=== PATIENT | male | born 1965 | race Caucasian/White ===

== ENCOUNTER 2017-03-06 10:47 | Inpatient (IN) | payer BC ==
[2017-03-06 10:54] LABS: Glucose,Whole Blood 184 mg/dL (75-99)
[2017-03-06] MEDS ORDERED: EPINEPHrine 10 ML SYRINGE (0.1 MG/ML) ONE (10:55)
[2017-03-06] MEDS ORDERED: SODIUM BICARB 8.4% 50 ML SYR (1 MEQ/ML) ONE (10:55)
[2017-03-06] MEDS ORDERED: DEXTROSE 50%-WATER 50 ML SYRINGE IVP ONE (10:55)
[2017-03-06] MEDS ORDERED: NITROGLYCERIN SL TABS 0.4 MG TAB SUBLINGUAL PRN (11:12)
[2017-03-06 11:27] LABS: Appearance,Urine Clear (Clear); Bilirubin,Urine Negative (Negative); Glucose,Urine (UA) Negative (Negative); Ketones,Urine Negative (Negative); Leukocyte Esterase,Urine Negative (Negative); Nitrite,Urine Negative (Negative); PH, Urine 5.5 (5.0-8.0); Protein,Urine Negative (Negative); Specific Gravity,Urine 1.002 (1.001-1.035); UA Billing (MACRO vs. MICRO) CHEM; Urobilinogen,Urine <2.0 mg/dL (<2.0)
[2017-03-06] MEDS ORDERED: NOREPINEPHRIN 4 MG-0.9% NS PMX 4 MG/250 ML ML IV ONE (11:28)
--- NOTE | 2017-03-06 11:28 | ED ---
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 EMS was called. EMS arrived about 10:26 AM. He was found be pulseless at neck. ACLS protocol was started including an oral airway with bag valve mask and CPR. Patient arrives. 10:47 AM. He remained pulseless. A cells protocol was continued. After a period of time he did regain pulses. Patient did require oral tracheal intubation. MD Complaint: stopped breathing, collapsed during activity - Related Data Home Medications Medication Instructions Recorded Confirmed Albuterol Inhaler [Ventolin Hfa 1 - 2 puff INHALATION RT-Q6H PRN 03/06/17 Inhaler] Albuterol Nebulized [Ventolin 2.5 mg INHALATION RT-Q4H PRN 03/06/17 03/06/17 Nebulized] Budesonide [Pulmicort] 0.5 mg INHALATION RT-BID 03/06/17 03/06/17 Carvedilol [Coreg] 6.25 mg PO BID 03/06/17 03/06/17 Furosemide [Lasix] 40 mg PO DAILY 03/06/17 03/06/17 Rivaroxaban [Xarelto] 20 mg PO W/SUPPER 03/06/17 03/06/17 Allergies Allergy/AdvReac Type Severity Reaction Status Date / Time walnut Allergy Unknown Verified 03/06/17 11:37 ORANGE JUICE PULP Allergy Unknown Uncoded 03/06/17 11:37 OREO COOKIES Allergy Unknown Uncoded 03/06/17 11:37 Review of Systems ROS Statement: Those systems with pertinent positive or pertinent negative responses have been documented in the HPI. ROS Other: All systems not noted in ROS Statement are negative. Limitations: ROS unobtainable due to patients medical condition Past Medical History Past Medical History: Asthma, COPD, Pulmonary Embolus (PE), Sleep Apnea/CPAP/ BIPAP Additional Past Medical History / Comment(s): Cor pulmonale History of Any Multi-Drug Resistant Organisms: Unobtainable Past Surgical History: Unable to Obtain Past Psychological History: Unable to Obtain Smoking Status: Current every day smoker Past Alcohol Use History: Unable to Obtain Past Drug Use History: Unable to Obtain General Exam - General Exam Comments Initial Comments: This is a well-developed well-nourished obese male CPR was in progress upon arrival. Limitations: altered mental status, physical limitation General appearance: other (Unresponsive) Head exam: Present: atraumatic, normocephalic Eye exam: Present: other (Pupils are fixed and dilated) ENT exam: Present: other (Oral airway in place) Neck exam: Present: normal inspection. Absent: tenderness, meningismus, lymphadenopathy Respiratory exam: Present: decreased breath sounds (With [id number]) Cardiovascular Exam: Present: other (Pulseless) GI/Abdominal exam: Present: other (Obese abdomen) Rectal exam: Present: deferred exam: Present: normal inspection Extremities exam: Present: other (Stasis changes noted to the lower extremities) . Absent: normal capillary refill Neurological exam: Present: other (Unresponsive) Psychiatric exam: Present: other (Unable to evaluate) Skin exam: Present: mottled Course Vital Signs 03/06/17 03/06/17 03/06/17 11:16 11:20 11:24 Temperature 97.2 F L Pulse Rate Pulse Rate [ 98 93 93 Custodial Foreman ] Respiratory 14 14 14 Rate Blood Pressure Blood Pressure 113/43 116/51 88/49 [Right Arm] O2 Sat by Pulse 100 100 100 Oximetry 03/06/17 03/06/17 03/06/17 11:34 11:40 11:45 Temperature Pulse Rate 96 96 Pulse Rate [ 95 Custodial Foreman ] Respiratory 14 14 14 Rate Blood Pressure 112/70 133/83 Blood Pressure 92/55 [Right Arm] O2 Sat by Pulse 99 99 99 Oximetry 03/06/17 03/06/17 11:50 11:55 Temperature Pulse Rate Pulse Rate [ 94 90 Custodial Foreman ] Respiratory 14 14 Rate Blood Pressure Blood Pressure 144/88 157/94 [Right Arm] O2 Sat by Pulse 99 99 Oximetry - Reevaluation(s) Reevaluation #1: 03/06/17 11:39 Review the x-ray shows the endotracheal tube to be just above the kanchan and will be withdrawn about 1 cm. I did have a long discussion with the patient's regarding the findings. Reevaluation #2: 03/06/17 12:09 Reevaluation patient reveals minimal change he still has a pulse and blood pressure he is still unresponsive. Lactic acid was noted to be elevated this is likely secondary to the events of the morning. IV fluids are progress. I did discuss the case with Dr. Ruiz as well as previously with Dr. Lester and with Deedee Pérez's associate. The patient will be admitted ICU. Procedures - Intubation Time Out Performed: No (Present with the patient at all time) Laryngoscope: fiber optic video scope Size: 4 Assist Device Used: Bougie ET Tube Size: 8 ET Tube Uncuffed: No (Cuff the tube) Tube Secured Depth (cm): 26 Tube Secured Location: lips (Difficult intubation due to the anterior positioning) Tube Placement Confirmation: visualized tube passing through cords, confirmation by capnometry Medical Decision Making - Lab Data Result diagrams: 03/06/17 11:16 03/06/17 11:16 Lab Results 03/06/17 03/06/17 03/06/17 Range/Units 10:53 11:16 11:16 WBC 8.6 (3.8-10.6) k/uL RBC 5.01 (4.30-5.90) m/uL Hgb 15.5 (13.0-17.5) gm/dL Hct 48.7 (39.0-53.0) % MCV 97.1 (80.0-100.0) fL MCH 30.9 (25.0-35.0) pg MCHC 31.8 (31.0-37.0) g/dL RDW 14.0 (11.5-15.5) % Plt Count 170 (150-450) k/uL Neutrophils % 52 % Lymphocytes % 40 % Monocytes % 5 % Eosinophils % 1 % Basophils % 1 % Neutrophils # 4.4 (1.3-7.7) k/uL Lymphocytes # 3.4 (1.0-4.8) k/uL Monocytes # 0.4 (0-1.0) k/uL Eosinophils # 0.1 (0-0.7) k/uL Basophils # 0.1 (0-0.2) k/uL Hypochromasia Moderate PT (9.0-12.0) sec INR (<1.2) APTT (22.0-30.0) sec Sodium 140 (137-145) mmol/L Potassium 5.6 H (3.5-5.1) mmol/L Chloride 105 (98-107) mmol/L Carbon Dioxide 14 L (22-30) mmol/L Anion Gap 21 mmol/L BUN 11 (9-20) mg/dL Creatinine 1.40 H (0.66-1.25) mg/dL Est GFR (MDRD) Af Amer >60 (>60 ml/min/1.73 sqM) Est GFR (MDRD) Non-Af 53 (>60 ml/min/1.73 sqM) Glucose 292 H (74-99) mg/dL POC Glucose (mg/dL) 184 H (75-99) mg/dL POC Glu Coverage Specialist Rn ID [place] askew Plasma Lactic Acid Scooter (0.7-2.0) mmol/L Calcium 8.6 (8.4-10.2) mg/dL Magnesium 2.4 H (1.6-2.3) mg/dL Total Bilirubin 0.6 (0.2-1.3) mg/dL AST 79 H (17-59) U/L ALT 78 H (21-72) U/L Alkaline Phosphatase 60 (38-126) U/L Total Creatine Kinase (55-170) U/L CK-MB (CK-2) (0.0-2.4) ng/mL CK-MB (CK-2) Rel Index Troponin I (0.000-0.034) ng/mL Total Protein 5.8 L (6.3-8.2) g/dL Albumin 3.5 (3.5-5.0) g/dL Urine Color Urine Appearance (Clear) Urine pH (5.0-8.0) Ur Specific [place] (1.001-1.035) Urine Protein (Negative) Urine Glucose (UA) (Negative) Urine Ketones (Negative) Urine Blood (Negative) Urine Nitrite (Negative) Urine Bilirubin (Negative) Urine Urobilinogen (<2.0) mg/dL Ur Leukocyte Esterase (Negative) 03/06/17 03/06/17 03/06/17 Range/Units 11:16 11:16 11:16 WBC (3.8-10.6) k/uL RBC (4.30-5.90) m/uL Hgb (13.0-17.5) gm/dL Hct (39.0-53.0) % MCV (80.0-100.0) fL MCH (25.0-35.0) pg MCHC (31.0-37.0) g/dL RDW (11.5-15.5) % Plt Count (150-450) k/uL Neutrophils % % Lymphocytes % % Monocytes % % Eosinophils % % Basophils % % Neutrophils # (1.3-7.7) k/uL Lymphocytes # (1.0-4.8) k/uL Monocytes # (0-1.0) k/uL Eosinophils # (0-0.7) k/uL Basophils # (0-0.2) k/uL Hypochromasia PT 10.7 (9.0-12.0) sec INR 1.1 (<1.2) APTT 27.8 (22.0-30.0) sec Sodium (137-145) mmol/L Potassium (3.5-5.1) mmol/L Chloride (98-107) mmol/L Carbon Dioxide (22-30) mmol/L Anion Gap mmol/L BUN (9-20) mg/dL Creatinine (0.66-1.25) mg/dL Est GFR (MDRD) Af Amer (>60 ml/min/1.73 sqM) Est GFR (MDRD) Non-Af (>60 ml/min/1.73 sqM) Glucose (74-99) mg/dL POC Glucose (mg/dL) (75-99) mg/dL POC Glu Coverage Specialist Rn ID Plasma Lactic Acid Scooter 12.7 H* (0.7-2.0) mmol/L Calcium (8.4-10.2) mg/dL Magnesium (1.6-2.3) mg/dL Total Bilirubin (0.2-1.3) mg/dL AST (17-59) U/L ALT (21-72) U/L Alkaline Phosphatase (38-126) U/L Total Creatine Kinase 116 (55-170) U/L CK-MB (CK-2) 0.8 (0.0-2.4) ng/mL CK-MB (CK-2) Rel Index 0.7 Troponin I <0.012 (0.000-0.034) ng/mL Total Protein (6.3-8.2) g/dL Albumin (3.5-5.0) g/dL Urine Color Urine Appearance (Clear) Urine pH (5.0-8.0) Ur Specific [place] (1.001-1.035) Urine Protein (Negative) Urine Glucose (UA) (Negative) Urine Ketones (Negative) Urine Blood (Negative) Urine Nitrite (Negative) Urine Bilirubin (Negative) Urine Urobilinogen (<2.0) mg/dL Ur Leukocyte Esterase (Negative) 03/06/17 Range/Units 11:18 WBC (3.8-10.6) k/uL RBC (4.30-5.90) m/uL Hgb (13.0-17.5) gm/dL Hct (39.0-53.0) % MCV (80.0-100.0) fL MCH (25.0-35.0) pg MCHC (31.0-37.0) g/dL RDW (11.5-15.5) % Plt Count (150-450) k/uL Neutrophils % % Lymphocytes % % Monocytes % % Eosinophils % % Basophils % % Neutrophils # (1.3-7.7) k/uL Lymphocytes # (1.0-4.8) k/uL Monocytes # (0-1.0) k/uL Eosinophils # (0-0.7) k/uL Basophils # (0-0.2) k/uL Hypochromasia PT (9.0-12.0) sec INR (<1.2) APTT (22.0-30.0) sec Sodium (137-145) mmol/L Potassium (3.5-5.1) mmol/L Chloride (98-107) mmol/L Carbon Dioxide (22-30) mmol/L Anion Gap mmol/L BUN (9-20) mg/dL Creatinine (0.66-1.25) mg/dL Est GFR (MDRD) Af Amer (>60 ml/min/1.73 sqM) Est GFR (MDRD) Non-Af (>60 ml/min/1.73 sqM) Glucose (74-99) mg/dL POC Glucose (mg/dL) (75-99) mg/dL POC Glu Coverage Specialist Rn ID Plasma Lactic Acid Scooter (0.7-2.0) mmol/L Calcium (8.4-10.2) mg/dL Magnesium (1.6-2.3) mg/dL Total Bilirubin (0.2-1.3) mg/dL AST (17-59) U/L ALT (21-72) U/L Alkaline Phosphatase (38-126) U/L Total Creatine Kinase (55-170) U/L CK-MB (CK-2) (0.0-2.4) ng/mL CK-MB (CK-2) Rel Index Troponin I (0.000-0.034) ng/mL Total Protein (6.3-8.2) g/dL Albumin (3.5-5.0) g/dL Urine Color Light Yellow Urine Appearance Clear (Clear) Urine pH 5.5 (5.0-8.0) Ur Specific [place] 1.002 (1.001-1.035) Urine Protein Negative (Negative) Urine Glucose (UA) Negative (Negative) Urine Ketones Negative (Negative) Urine Blood Negative (Negative) Urine Nitrite Negative (Negative) Urine Bilirubin Negative (Negative) Urine Urobilinogen <2.0 (<2.0) mg/dL Ur Leukocyte Esterase Negative (Negative) - EKG Data -: EKG Interpreted by [facility] EKG shows normal: sinus rhythm (Sinus tachycardia with a rate of 108 ME interval 192 QRS 154 daily since QTC of 366/490 right bundle-branch block left posterior fascicular block patterns) Critical Care Time Critical Care Time: Yes Critical Care Time: 57 minutes of critical care time which does not include the intubation which does include the CPR ACLS protocol as well as multiple discussions with the patient is family multiple discussions with physicians and reevaluation of the patient. Documentation above and admission orders. Disposition Clinical Impression: Acute respiratory failure, Cardiac arrest, Lactic acidosis, Encephalopathy acute, PEA (Pulseless electrical activity) Disposition: ADMITTED IP TO THIS [facility] Condition: Critical Referrals: Nonstaff,Physician [REFERRING] - 1-2 days
[2017-03-06 11:30] LABS: Basophils # (A) 0.1 k/uL (0-0.2); Basophils % (A) 1 %; CH 29.4; CHCM 30.4; Eosinophils # (A) 0.1 k/uL (0-0.7); Eosinophils % (A) 1 %; HCT 48.7 % (39.0-53.0); HDW 2.71; HGB 15.5 gm/dL (13.0-17.5); Hypochromasia Moderate; Luc # (Auto) 0.14; Luc % (Auto) 2; Lymphocytes # (A) 3.4 k/uL (1.0-4.8); Lymphocytes % (A) 40 %; MCH 30.9 pg (25.0-35.0); MCHC 31.8 g/dL (31.0-37.0); MCV 97.1 fL (80.0-100.0); Mean Platelet Volume 8.2; Monocytes # (A) 0.4 k/uL (0-1.0); Monocytes % (A) 5 %; Neutrophils # (A) 4.4 k/uL (1.3-7.7); Neutrophils % (A) 52 %; RBC 5.01 m/uL (4.30-5.90); WBC 8.6 k/uL (3.8-10.6); WBC (Perox) 8.34
[2017-03-06] MEDS ORDERED: SODIUM CHLORIDE 0.9% 1,000 ML IV ONE ×2 (11:30→11:32)
[2017-03-06 11:41] LABS: INR 1.1 (<1.2); Partial Thromboplastin Time 27.8 sec (22.0-30.0); Prothrombin Time 10.7 sec (9.0-12.0)
[2017-03-06 11:46] LABS: ALT 78 U/L (21-72); AST 79 U/L (17-59); Alkaline Phosphatase 60 U/L (38-126); Anion Gap 21 mmol/L; Blood Urea Nitrogen 11 mg/dL (9-20); Calcium 8.6 mg/dL (8.4-10.2); Carbon Dioxide 14 mmol/L (22-30); Chloride 105 mmol/L (98-107); Glucose 292 mg/dL (74-99); Magnesium 2.4 mg/dL (1.6-2.3); Non-African American GFR(MDRD) 53 (>60 ml/min/1.73 sqM); Potassium 5.6 mmol/L (3.5-5.1); Sodium 140 mmol/L (137-145); Total Bilirubin 0.6 mg/dL (0.2-1.3); Total Protein 5.8 g/dL (6.3-8.2)
--- NOTE | 2017-03-06 11:49 | XR ---
EXAMINATION TYPE: XR chest 1V portable DATE OF EXAM: 03/06/2017 Comparison: None Clinical History: 51-year-old male with chest pain Findings: Patient is supine and rotated to the left. This alters a normal cardiac and mediastinal contours. ET tube tip is partially obscured by the NG tube and the kanchan is not well delineated. The tip is ap proximated at 1.5 cm from the kanchan. ET tube could be pulled back by 2 cm and reassessed. NG tube courses below the diaphragm. Heart is mildly enlarged with diffuse interstitial prominence. External artifacts are present. There may be some patchy opacity at the cardiac apex. Impression: 1. Normal cardiomediastinal contours altered by patient rotation. 2. ET tube tip and kanchan not optimally visualized. Estimate the tip to be 1.5 cm from the kanchan. Co nsider 2 cm of withdrawal and reassessment at follow-up. 3. Possible mild CHF. 4. Some atelectasis or infiltrate at the inferior lingula.
[2017-03-06 11:50] LABS: Creatine Kinase 116 U/L (55-170)
[2017-03-06 12:03] LABS: Creatine Kinase MB 0.8 ng/mL (0.0-2.4); Troponin I <0.012 ng/mL (0.000-0.034)
[2017-03-06] MEDS ORDERED: SODIUM CHLORIDE 0.9% 1,000 ML IV STA (12:07)
[2017-03-06] MEDS ORDERED: NALOXONE 0.4 MG/ML 1 ML VIAL IV PRN (12:13)
[2017-03-06] MEDS ORDERED: RX INFO: IV CONTRAST WAS GIVEN 1 EACH MISC MISCELLANE PRN (12:19)
[2017-03-06] MEDS: LORazepam 2 MG/ML SYRINGE IV STA ×2 (12:54→14:08)
[2017-03-06] MEDS: PROPOFOL 1,000 MG/100 ML VIAL IV SCH ×3 (13:30→23:25)
--- NOTE | 2017-03-06 13:30 | CT ---
EXAMINATION TYPE: CT angio chest DATE OF EXAM: 03/06/2017 COMPARISON: NONE HISTORY: Cardiac arrest, patient intubated at time of scan CT DLP: 1137.7 mGycm CONTRAST: CT chest with contrast and 3D reconstruction with MIP imaging is performed with IV Contrast, patient injected with 80 mL of Visipaque 320. Contrast-enhanced CT of the chest was performed through the course of the pulmonary arteries with edelmira g and mediastinal window settings submitted. 3D reconstruction with MIP imaging was also performed. PULMONARY ARTERIES: The pulmonary arteries and their major tributaries are patent. I do not see xiomara dence for sizable filling defect to suggest pulmonary embolic process. LUNGS: Left lower lobe atelectasis or infiltrate noted. No evidence for atelectasis. No pulmonary n odule or mass is detected. No pleural effusion. Endotracheal and NG tubes are in place. MEDIASTINUM: Thoracic aorta is of normal caliber . The heart is not enlarged. No evidence for media stinal mass. No mediastinal lymph nodes greater than 1cm. HILAR STRUCTURES: No evidence for mass. No hilar lymph nodes greater than 1 cm. UPPER ABDOMEN: No significant abnormality is seen. IMPRESSION: 1. No evidence for Pulmonary embolism at this time. 2. Left lower lobe atelectasis or infiltrate noted.
[2017-03-06] MEDS ORDERED: methylPREDNISolone SOD SUCCI 125 MG/2 ML VIAL IV STA (13:42)
[2017-03-06 14:31] LABS: ABG HCO3 20 mmol/L (21-25); ABG PCO2 76 mmHg (35-45); ABG PH 7.05 (7.35-7.45); ABG PO2 >400 mmHg (83-108); ABG TCO2 22 mmol/L (19-24)
[2017-03-06 14:32] LABS: ABG Oxygen Saturation 99.9 % (94-97)
--- NOTE | 2017-03-06 16:23 | P.CON ---
Consult Note - . Consult date: 03/06/17 Assessment/Plan:: *Live* [facility]ika Fontana [address], [place] [address] CPR Patient Name: Claude Veloz Date of : 65 Patient Status: Inpatient Attending Provider: Gustavo Ruiz Date: 03/06/17 4:00pm CRITICAL CARE CONSULT CPR HPI - General Chief Complaint: S/P Cardiac Arrest/CPR Stated Complaint: Cardiac Arrest Time Seen by Provider: 03/06/17 2:30 Source: RN/MD, EMS, RN notes reviewed, old records reviewed, PRESENT BEDSIDE - History of Present Illness Initial Comments: This is a 51-year-old male with a history of COPD cor pulmonale pulmonary embolism severe morbid obesity, obstructive sleep apnea who 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 EMS was called. He was found be pulseless at neck. ACLS protocol was started including an oral airway with bag valve mask and CPR. He remained pulseless, in emergency department, for details please refer to the code sheet however it appears that 20 minutes of ACLS protocol was done in the field and another 35 to 40 minutes in the emergency department. ACLS protocol was continued. After a period of time he did regain pulses. Patient did require oral tracheal intubation in the emergency department. Patient has a history of pneumonia pulmonary hypertension was diagnosed about a year ago at that time he was also on respirator at [facility] exact details are not available - Related Data Home Medications Medication Instructions Recorded Confirmed Albuterol Inhaler [Ventolin Hfa 1 - 2 puff INHALATION RT-Q6H PRN 03/06/17 Inhaler] Albuterol Nebulized [Ventolin 2.5 mg INHALATION RT-Q4H PRN 03/06/17 03/06/17 Nebulized] Budesonide [Pulmicort] 0.5 mg INHALATION RT-BID 03/06/17 03/06/17 Carvedilol [Coreg] 6.25 mg PO BID 03/06/17 03/06/17 Furosemide [Lasix] 40 mg PO DAILY 03/06/17 03/06/17 Rivaroxaban [Xarelto] 20 mg PO W/SUPPER 03/06/17 03/06/17 Allergies Allergy/AdvReac Type Severity Reaction Status Date / Time walnut Allergy Unknown Verified 03/06/17 11:37 ORANGE JUICE PULP Allergy Unknown Uncoded 03/06/17 11:37 OREO COOKIES Allergy Unknown Uncoded 03/06/17 11:37 Review of Systems ROS Statement: Those systems with pertinent positive or pertinent negative responses have been documented in the HPI. ROS Other: All systems not noted in ROS Statement are negative. Limitations: ROS unobtainable due to patients medical condition Past Medical History Past Medical History: Asthma, COPD, Pulmonary Embolus (PE), Sleep Apnea/CPAP/ BIPAP, pulmonary hypertension Additional Past Medical History / Comment(s): Cor pulmonale History of Any Multi-Drug Resistant Organisms: Unobtainable Past Surgical History: Unremarkable and noncontributory Past Psychological History: Noncontributory Smoking Status: Current every day smoker, still smoking a pack a day for about 40-45 years Past Alcohol Use History: Unremarkable and noncontributory Past Drug Use History: Unremarkable and noncontributory General Exam - General Exam Comments Initial Comments: This is a well-developed well-nourished obese male on full respirator support currently on assist control rate of 14 breathing 28 tidal volume of 550% oxygen and 5 of PEEP patient has IO also 2 peripheral IVs H and is intubated through the mouth also has a OG tube as well with dark coffee-ground stuff Limitations: altered mental status, physical limitation General appearance: other (Unresponsive) Head exam: Present: atraumatic, normocephalic Eye exam: Present: other (Pupils are fixed and dilated) ENT exam: Present: other (Oral airway in place) Neck exam: Present: normal inspection. Absent: tenderness, meningismus, lymphadenopathy Respiratory exam: Bilateral air entry is present with diffuse inspiratory and expiratory wheezing Cardiovascular Exam: Present: S1 and S2 audible no gallop rub or murmur GI/Abdominal exam: Present: other (Obese abdomen) exam: Present: normal inspection Extremities exam: Trace edema is present bilateral good pulses, normal capillary refill Neurological exam: Present: Nonverbal and noncommunicative 3 unresponsive to deep physical and verbal stimuli. Pupils are small and pinpoint Psychiatric exam: Present: other (Unable to evaluate) Skin exam: Present: mottled, but improving Course Vital Signs 03/06/17 03/06/17 03/06/17 11:16 11:20 11:24 Temperature 97.2 F L Pulse Rate Pulse Rate [ 98 93 93 News Clerk ] Respiratory 14 14 14 Rate Blood Pressure Blood Pressure 113/43 116/51 88/49 [Right Arm] O2 Sat by Pulse 100 100 100 Oximetry 03/06/17 03/06/17 03/06/17 11:34 11:40 11:45 Temperature Pulse Rate 96 96 Pulse Rate [ 95 News Clerk ] Respiratory 14 14 14 Rate Blood Pressure 112/70 133/83 Blood Pressure 92/55 [Right Arm] O2 Sat by Pulse 99 99 99 Oximetry 03/06/17 03/06/17 11:50 11:55 Temperature Pulse Rate Pulse Rate [ 94 90 News Clerk ] Respiratory 14 14 Rate Blood Pressure Blood Pressure 144/88 157/94 [Right Arm] O2 Sat by Pulse 99 99 Oximetry - Lab Results 03/06/17 03/06/17 03/06/17 Range/Units 10:53 11:16 11:16 WBC 8.6 (3.8-10.6) k/uL RBC 5.01 (4.30-5.90) m/uL Hgb 15.5 (13.0-17.5) gm/dL Hct 48.7 (39.0-53.0) % MCV 97.1 (80.0-100.0) fL MCH 30.9 (25.0-35.0) pg MCHC 31.8 (31.0-37.0) g/dL RDW 14.0 (11.5-15.5) % Plt Count 170 (150-450) k/uL Neutrophils % 52 % Lymphocytes % 40 % Monocytes % 5 % Eosinophils % 1 % Basophils % 1 % Neutrophils # 4.4 (1.3-7.7) k/uL Lymphocytes # 3.4 (1.0-4.8) k/uL Monocytes # 0.4 (0-1.0) k/uL Eosinophils # 0.1 (0-0.7) k/uL Basophils # 0.1 (0-0.2) k/uL Hypochromasia Moderate PT (9.0-12.0) sec INR (<1.2) APTT (22.0-30.0) sec Sodium 140 (137-145) mmol/L Potassium 5.6 H (3.5-5.1) mmol/L Chloride 105 (98-107) mmol/L Carbon Dioxide 14 L (22-30) mmol/L Anion Gap 21 mmol/L BUN 11 (9-20) mg/dL Creatinine 1.40 H (0.66-1.25) mg/dL Est GFR (MDRD) Af Amer >60 (>60 ml/min/1.73 sqM) Est GFR (MDRD) Non-Af 53 (>60 ml/min/1.73 sqM) Glucose 292 H (74-99) mg/dL POC Glucose (mg/dL) 184 H (75-99) mg/dL POC Glu Steam Fitter ID Magnolia Jean Plasma Lactic Acid Scooter (0.7-2.0) mmol/L Calcium 8.6 (8.4-10.2) mg/dL Magnesium 2.4 H (1.6-2.3) mg/dL Total Bilirubin 0.6 (0.2-1.3) mg/dL AST 79 H (17-59) U/L ALT 78 H (21-72) U/L Alkaline Phosphatase 60 (38-126) U/L Total Creatine Kinase (55-170) U/L CK-MB (CK-2) (0.0-2.4) ng/mL CK-MB (CK-2) Rel Index Troponin I (0.000-0.034) ng/mL Total Protein 5.8 L (6.3-8.2) g/dL Albumin 3.5 (3.5-5.0) g/dL Urine Color Urine Appearance (Clear) Urine pH (5.0-8.0) Ur Specific [place] (1.001-1.035) Urine Protein (Negative) Urine Glucose (UA) (Negative) Urine Ketones (Negative) Urine Blood (Negative) Urine Nitrite (Negative) Urine Bilirubin (Negative) Urine Urobilinogen (<2.0) mg/dL Ur Leukocyte Esterase (Negative) 03/06/17 03/06/17 03/06/17 Range/Units 11:16 11:16 11:16 WBC (3.8-10.6) k/uL RBC (4.30-5.90) m/uL Hgb (13.0-17.5) gm/dL Hct (39.0-53.0) % MCV (80.0-100.0) fL MCH (25.0-35.0) pg MCHC (31.0-37.0) g/dL RDW (11.5-15.5) % Plt Count (150-450) k/uL Neutrophils % % Lymphocytes % % Monocytes % % Eosinophils % % Basophils % % Neutrophils # (1.3-7.7) k/uL Lymphocytes # (1.0-4.8) k/uL Monocytes # (0-1.0) k/uL Eosinophils # (0-0.7) k/uL Basophils # (0-0.2) k/uL Hypochromasia PT 10.7 (9.0-12.0) sec INR 1.1 (<1.2) APTT 27.8 (22.0-30.0) sec Sodium (137-145) mmol/L Potassium (3.5-5.1) mmol/L Chloride (98-107) mmol/L Carbon Dioxide (22-30) mmol/L Anion Gap mmol/L BUN (9-20) mg/dL Creatinine (0.66-1.25) mg/dL Est GFR (MDRD) Af Amer (>60 ml/min/1.73 sqM) Est GFR (MDRD) Non-Af (>60 ml/min/1.73 sqM) Glucose (74-99) mg/dL POC Glucose (mg/dL) (75-99) mg/dL POC Glu Steam Fitter ID Plasma Lactic Acid Scooter 12.7 H* (0.7-2.0) mmol/L Calcium (8.4-10.2) mg/dL Magnesium (1.6-2.3) mg/dL Total Bilirubin (0.2-1.3) mg/dL AST (17-59) U/L ALT (21-72) U/L Alkaline Phosphatase (38-126) U/L Total Creatine Kinase 116 (55-170) U/L CK-MB (CK-2) 0.8 (0.0-2.4) ng/mL CK-MB (CK-2) Rel Index 0.7 Troponin I <0.012 (0.000-0.034) ng/mL Total Protein (6.3-8.2) g/dL Albumin (3.5-5.0) g/dL Urine Color Urine Appearance (Clear) Urine pH (5.0-8.0) Ur Specific [place] (1.001-1.035) Urine Protein (Negative) Urine Glucose (UA) (Negative) Urine Ketones (Negative) Urine Blood (Negative) Urine Nitrite (Negative) Urine Bilirubin (Negative) Urine Urobilinogen (<2.0) mg/dL Ur Leukocyte Esterase (Negative) 03/06/17 Range/Units 11:18 WBC (3.8-10.6) k/uL RBC (4.30-5.90) m/uL Hgb (13.0-17.5) gm/dL Hct (39.0-53.0) % MCV (80.0-100.0) fL MCH (25.0-35.0) pg MCHC (31.0-37.0) g/dL RDW (11.5-15.5) % Plt Count (150-450) k/uL Neutrophils % % Lymphocytes % % Monocytes % % Eosinophils % % Basophils % % Neutrophils # (1.3-7.7) k/uL Lymphocytes # (1.0-4.8) k/uL Monocytes # (0-1.0) k/uL Eosinophils # (0-0.7) k/uL Basophils # (0-0.2) k/uL Hypochromasia PT (9.0-12.0) sec INR (<1.2) APTT (22.0-30.0) sec Sodium (137-145) mmol/L Potassium (3.5-5.1) mmol/L Chloride (98-107) mmol/L Carbon Dioxide (22-30) mmol/L Anion Gap mmol/L BUN (9-20) mg/dL Creatinine (0.66-1.25) mg/dL Est GFR (MDRD) Af Amer (>60 ml/min/1.73 sqM) Est GFR (MDRD) Non-Af (>60 ml/min/1.73 sqM) Glucose (74-99) mg/dL POC Glucose (mg/dL) (75-99) mg/dL POC Glu Steam Fitter ID Plasma Lactic Acid Scooter (0.7-2.0) mmol/L Calcium (8.4-10.2) mg/dL Magnesium (1.6-2.3) mg/dL Total Bilirubin (0.2-1.3) mg/dL AST (17-59) U/L ALT (21-72) U/L Alkaline Phosphatase (38-126) U/L Total Creatine Kinase (55-170) U/L CK-MB (CK-2) (0.0-2.4) ng/mL CK-MB (CK-2) Rel Index Troponin I (0.000-0.034) ng/mL Total Protein (6.3-8.2) g/dL Albumin (3.5-5.0) g/dL Urine Color Light Yellow Urine Appearance Clear (Clear) Urine pH 5.5 (5.0-8.0) Ur Specific [place] 1.002 (1.001-1.035) Urine Protein Negative (Negative) Urine Glucose (UA) Negative (Negative) Urine Ketones Negative (Negative) Urine Blood Negative (Negative) Urine Nitrite Negative (Negative) Urine Bilirubin Negative (Negative) Urine Urobilinogen <2.0 (<2.0) mg/dL Ur Leukocyte Esterase Negative (Negative) EKG shows normal: sinus rhythm (Sinus tachycardia with a rate of 108 RI interval 192 QRS 154 daily since QTC of 366/490 right bundle-branch block left posterior fascicular block patterns) Chest x-ray stable ET tube slightly above the kanchan left lower lobe infiltrate seen may very well be aspiration pneumonia versus atelectasis O G-tube was stable in position Computed tomography scan of the chest reviewed there is a left lower lobe atelectasis versus pneumonia is present no filling defect identified to suggest pulmonary embolism Impression #1 status post cardiopulmonary arrest #2 CV a profound metabolic acidosis related to above #3 severe morbid obesity obstructive sleep apnea and pulmonary hypertension #4 prior history of pulmonary embolism a year ago has been on XerALTO regularly #5 suspected anoxic injury to the brain #6 aspiration pneumonia likely left lower lobe Plan Supportive care with adjustment of respirator, fluid resuscitation and support, recommendations were made for central line and A-line however family has declined, patient is being started on broad-spectrum antibiotics propofol is being given for comfort and better control on respirator, we'll closely monitor the urine output and mental status, neurology consultation has been initiated overall prognosis guarded Critical Care Time Critical Care Time: 60
--- NOTE | 2017-03-06 16:33 | P.CRDCN ---
History of Present Illness Consult date: 03/06/17 History of present illness: Is a 51-year-old gentleman with history of obesity, sleep apnea, cor pulmonale, and also pulmonary hypertension being followed by side laster regularly. Patient apparently had a pulmonary stress test in the side laster office. Following that patient started having difficulty breathing. Apparently attempts were made to give him updraft treatments. This did not help him and subsequently patient had a cardiac pulmonary arrest. Resuscitative was started in side laster office and subsequently brought to the emergency room with CPR. After 20 minutes of CPR, patient regained pulse. Patient had periods of asystole and also pulseless electric activity during the code. Subsequently, patient developed sinus rhythm with evidence of right bundle-branch block, and also right axis deviation. Patient had a computed tomography scan of the chest which was negative for pulmonary emboli. Chest x-ray and computed tomography scan are consistent with a left lobar lobe infiltrate/atelectasis. There is also evidence of metabolic acidosis related to cardiopulmonary arrest. Patient is on Diprivan and at this time, not responding to verbal or painful stimuli. Patient's pupils are small but seemed to be sluggish reacting. Patient is waiting to have neurology evaluation. It appears that patient had previous respiratory failure requiring intubation. He was told at the time that his right side of heart was not functioning well. Patient has cor pulmonale. He was being treated with Coreg. No history of previous myocardial infarction. No history of strokes. Review of Systems Not obtained Past Medical History Past Medical History: Asthma, COPD, Pulmonary Embolus (PE), Sleep Apnea/CPAP/ BIPAP Additional Past Medical History / Comment(s): Cor pulmonale History of Any Multi-Drug Resistant Organisms: Unobtainable Past Surgical History: Unable to Obtain Past Psychological History: Unable to Obtain Smoking Status: Current every day smoker Past Alcohol Use History: Unable to Obtain Past Drug Use History: Unable to Obtain Medications and Allergies Home Medications Medication Instructions Recorded Confirmed Type Albuterol Inhaler [Ventolin Hfa 1 - 2 puff INHALATION RT-Q6H PRN 03/06/17 History Inhaler] Albuterol Nebulized [Ventolin 2.5 mg INHALATION RT-Q4H PRN 03/06/17 03/06/17 History Nebulized] Budesonide [Pulmicort] 0.5 mg INHALATION RT-BID 03/06/17 03/06/17 History Carvedilol [Coreg] 6.25 mg PO BID 03/06/17 03/06/17 History Furosemide [Lasix] 40 mg PO DAILY 03/06/17 03/06/17 History Rivaroxaban [Xarelto] 20 mg PO W/SUPPER 03/06/17 03/06/17 History Allergies Allergy/AdvReac Type Severity Reaction Status Date / Time walnut Allergy Unknown Verified 03/06/17 11:37 ORANGE JUICE PULP Allergy Unknown Uncoded 03/06/17 11:37 OREO COOKIES Allergy Unknown Uncoded 03/06/17 11:37 Physical Exam Vitals: Vital Signs Temp Pulse Pulse Resp BP BP Pulse Ox 03/06/17 15:34 96 18 140/85 98 03/06/17 15:07 101 H 18 147/94 98 03/06/17 14:30 108 H 18 168/82 95 03/06/17 14:08 111 H 18 178/105 93 L 03/06/17 13:40 91 L 03/06/17 13:30 114 H 14 191/105 90 L 03/06/17 13:19 114 H 14 192/121 95 03/06/17 12:55 106 H 14 173/100 96 03/06/17 12:45 102 H 14 171/100 97 03/06/17 12:40 100 14 165/93 97 03/06/17 12:30 98 163/94 97 03/06/17 12:25 95 14 161/93 97 03/06/17 12:20 98.0 F 92 14 158/91 98 03/06/17 12:15 98.0 F 90 14 156/91 97 03/06/17 11:55 90 14 157/94 99 03/06/17 11:50 94 14 144/88 99 03/06/17 11:45 96 14 133/83 99 03/06/17 11:40 96 14 112/70 99 03/06/17 11:34 95 14 92/55 99 03/06/17 11:24 93 14 88/49 100 03/06/17 11:20 97.2 F L 93 14 116/51 100 03/06/17 11:16 98 14 113/43 100 Intake and Output 03/06/17 03/06/17 03/06/17 06:59 14:59 22:59 Intake Total 35.045 Output Total 1100 Balance -1064.955 Intake: Intake, IV Titration 35.045 Amount Norepinephrin 4 mg-0.9% 8.75 Ns Pmx 4 mg In 250 ml @ 5 MCG/MIN 18.75 mls/hr IV .[id number] ONE Rx#: [id number] Propofol 1,000 mg In 100 26.295 ml @ 20 MCG/KG/MIN 18.507 mls/hr IV .[id number] [facility] Rx #:[id number] Output: Urine 1100 Other: Weight 154.221 kg Patient Weight 03/07/17 06:59 Weight 154.221 kg GENERAL EXAM: Patient is intubated and sedated HEENT: Pupils are small and sluggishly reactive. NECK: No masses, no nuchal rigidity. CHEST: No chest wall deformity. LUNGS: Diminished air exchange ABDOMEN: No hepatosplenomegaly, normal bowel sounds, no guarding or rigidity. HEART: S1 and S2 normal . Distant heart sounds CENTRAL NERVOUS SYSTEM: Patient is sedated and intubated. No gross focal deficit EXTREMITIES: No cyanosis, clubbing .mild edema. Results 03/06/17 11:16 03/06/17 11:16 Cardiac Enzymes 03/06/17 03/06/17 Range/Units 11:16 11:16 AST 79 H (17-59) U/L CK-MB (CK-2) 0.8 (0.0-2.4) ng/mL Troponin I <0.012 (0.000-0.034) ng/mL Coagulation 03/06/17 Range/Units 11:16 PT 10.7 (9.0-12.0) sec APTT 27.8 (22.0-30.0) sec CBC 03/06/17 Range/Units 11:16 WBC 8.6 (3.8-10.6) k/uL RBC 5.01 (4.30-5.90) m/uL Hgb 15.5 (13.0-17.5) gm/dL Hct 48.7 (39.0-53.0) % Plt Count 170 (150-450) k/uL Comprehensive Metabolic Panel 03/06/17 Range/Units 11:16 Sodium 140 (137-145) mmol/L Potassium 5.6 H (3.5-5.1) mmol/L Chloride 105 (98-107) mmol/L Carbon Dioxide 14 L (22-30) mmol/L BUN 11 (9-20) mg/dL Creatinine 1.40 H (0.66-1.25) mg/dL Glucose 292 H (74-99) mg/dL Calcium 8.6 (8.4-10.2) mg/dL AST 79 H (17-59) U/L ALT 78 H (21-72) U/L Alkaline Phosphatase 60 (38-126) U/L Total Protein 5.8 L (6.3-8.2) g/dL Albumin 3.5 (3.5-5.0) g/dL Current Medications Generic Name Dose Route Start Last Admin Trade Name Freq PRN Reason Stop Dose Admin Albuterol/Ipratropium 3 ml 03/06/17 16:00 Duoneb 0.5 Mg-3 Mg/3 Ml Soln INHALATION RT-QID [facility] Budesonide 0.5 mg 03/06/17 20:00 Pulmicort INHALATION RT-BID [facility] Norepinephrine Bitartrate 4 mg in 250 mls @ 18.75 mls/hr 03/06/17 11:28 03/06 11:58 Levophed-0.9% Nacl 4 Mg/250ml Pmx IV 03/07/17 00:47 2.5 mcg/min .[id number] ONE 9.375 mls/hr Protocol Titration 5 MCG/MIN Esomeprazole Magnesium 20 mg/ 50 mls @ 100 mls/hr 03/07/17 09:00 Sodium Chloride IVPB DAILY [facility] Propofol 1,000 mg in 100 mls @ 18.507 mls/hr 03/06/17 13:30 03/06/17 14:36 Diprivan IV 40 mcg/kg/min .Q5H25M [facility] 37.013 mls/hr Protocol Titration 20 MCG/KG/MIN Piperacillin/Tazobactam/ 50 mls @ 12.5 mls/hr 03/06/17 16:00 Dextrose 3.375 gm/ IV Solution IVPB Q8HR [facility] Methylprednisolone Sodium Succinate 60 mg 03/06/17 18:00 Solu-Medrol IV Q6HR [facility] Miscellaneous Information 1 each 03/06/17 12:19 Rx Info: Iv Contrast Was Given MISCELLANE 03/08/17 12:19 DAILY PRN Per Protocol Naloxone HCl 0.2 mg 03/06/17 12:13 Narcan IV Q2M PRN Opioid Reversal Nitroglycerin 0.4 mg 03/06/17 11:12 Nitrostat SUBLINGUAL Q5M PRN Chest Pain Intake and Output 03/06/17 03/06/17 03/06/17 06:59 14:59 22:59 Intake Total 35.045 Output Total 1100 Balance -1064.955 Intake: Intake, IV Titration 35.045 Amount Norepinephrin 4 mg-0.9% 8.75 Ns Pmx 4 mg In 250 ml @ 5 MCG/MIN 18.75 mls/hr IV .[id number] ONE Rx#: [id number] Propofol 1,000 mg In 100 26.295 ml @ 20 MCG/KG/MIN 18.507 mls/hr IV .Q5H25M [facility] Rx #:[id number] Output: Urine 1100 Other: Weight 154.221 kg Patient Weight 03/07/17 06:59 Weight 154.221 kg 03/06/17 11:16 03/06/17 11:16 EKG Interpretations (text) Sinus rhythm with right bundle-branch block and right axis deviation Assessment and Plan (1) Cardiopulmonary arrest Status: Acute (2) Lactic acidosis Status: Acute (3) Cor pulmonale Status: Acute (4) COPD (chronic obstructive pulmonary disease) Status: Acute (5) Hypoxic encephalopathy Status: Acute (6) History of pulmonary embolism Status: Acute Plan: From a cardiac standpoint, we'll continue to monitor him. Cardiac enzymes studies will be followed and echocardiogram will be done. Neurology evaluation is pending. Rest of the ICU care and supportive care as for ip paralegal. Prognosis is poor.
[2017-03-06] MEDS: PIPERACILLIN-TAZOBACTAM 3.375 GM in DEXTROSE/WATER 1 50ML.BAG IVPB SCH (16:37)
[2017-03-06 16:54] LABS: ABG Base Excess -4.6 mmol/L; ABG HCO3 20 mmol/L (21-25); ABG PCO2 38 mmHg (35-45); ABG PH 7.35 (7.35-7.45); ABG PO2 131 mmHg (83-108); ABG TCO2 21 mmol/L (19-24)
[2017-03-06] MEDS: IPRATROPIUM-ALBUTEROL 3 ML NEB INHALATION SCH ×2 (16:55→21:51)
--- NOTE | 2017-03-06 17:36 | P.HPIM ---
History of Present Illness H&P Date: 03/06/17 Chief Complaint: CP arrest 51 yr old with history of PE, Pumonary HTN is admitted to the hospital after pt sustained a CP arrest at Dr Lester's office while undergoing PFT's Pt apparently underwent resuscitation in the ambulance and required further resuscitation in the ER. Total downtime is estimated around 50-60 minutes Pt is currently on the ventilator Initial pH was 7.05 pt also required vasopressor support for a short duration of time Pt is currently on propofol NO purposeful movements are appreciated so far EKG reveals a RBBB no st elevations Review of Systems ROS unobtainable: due to mental status Past Medical History Past Medical History: Asthma, COPD, Pulmonary Embolus (PE), Sleep Apnea/CPAP/ BIPAP Additional Past Medical History / Comment(s): Cor pulmonale History of Any Multi-Drug Resistant Organisms: Unobtainable Past Surgical History: Unable to Obtain Past Psychological History: Unable to Obtain Smoking Status: Current every day smoker Past Alcohol Use History: Unable to Obtain Past Drug Use History: Unable to Obtain Medications and Allergies Home Medications Medication Instructions Recorded Confirmed Type Albuterol Inhaler [Ventolin Hfa 1 - 2 puff INHALATION RT-Q6H PRN 03/06/17 History Inhaler] Albuterol Nebulized [Ventolin 2.5 mg INHALATION RT-Q4H PRN 03/06/17 03/06/17 History Nebulized] Budesonide [Pulmicort] 0.5 mg INHALATION RT-BID 03/06/17 03/06/17 History Carvedilol [Coreg] 6.25 mg PO BID 03/06/17 03/06/17 History Furosemide [Lasix] 40 mg PO DAILY 03/06/17 03/06/17 History Rivaroxaban [Xarelto] 20 mg PO W/SUPPER 03/06/17 03/06/17 History Allergies Allergy/AdvReac Type Severity Reaction Status Date / Time walnut Allergy Unknown Verified 03/06/17 11:37 ORANGE JUICE PULP Allergy Unknown Uncoded 03/06/17 11:37 OREO COOKIES Allergy Unknown Uncoded 03/06/17 11:37 Physical Exam Vitals: Vital Signs Temp Pulse Pulse Resp BP BP Pulse Ox 03/06/17 17:17 90 03/06/17 17:13 99 03/06/17 16:38 99.1 F 90 18 135/85 98 03/06/17 15:34 96 18 140/85 98 03/06/17 15:07 101 H 18 147/94 98 03/06/17 14:30 108 H 18 168/82 95 03/06/17 14:08 111 H 18 178/105 93 L 03/06/17 13:40 91 L 03/06/17 13:30 114 H 14 191/105 90 L 03/06/17 13:19 114 H 14 192/121 95 03/06/17 12:55 106 H 14 173/100 96 03/06/17 12:45 102 H 14 171/100 97 03/06/17 12:40 100 14 165/93 97 03/06/17 12:30 98 163/94 97 03/06/17 12:25 95 14 161/93 97 03/06/17 12:20 98.0 F 92 14 158/91 98 03/06/17 12:15 98.0 F 90 14 156/91 97 03/06/17 11:55 90 14 157/94 99 03/06/17 11:50 94 14 144/88 99 03/06/17 11:45 96 14 133/83 99 03/06/17 11:40 96 14 112/70 99 03/06/17 11:34 95 14 92/55 99 03/06/17 11:24 93 14 88/49 100 03/06/17 11:20 97.2 F L 93 14 116/51 100 03/06/17 11:16 98 14 113/43 100 Intake and Output 03/06/17 03/06/17 03/06/17 06:59 14:59 22:59 Intake Total 35.045 73.705 Output Total 1100 Balance -1064.955 73.705 Intake: Intake, IV Titration 35.045 73.705 Amount Norepinephrin 4 mg-0.9% 8.75 Ns Pmx 4 mg In 250 ml @ 5 MCG/MIN 18.75 mls/hr IV .[id number] ONE Rx#: [id number] Propofol 1,000 mg In 100 26.295 73.705 ml @ 20 MCG/KG/MIN 18.507 mls/hr IV .Q5H25M [facility] Rx #:[id number] Output: Urine 1100 Other: Weight 154.221 kg Patient Weight 03/07/17 06:59 Weight 154.221 kg - Constitutional General appearance: obese - EENT Eyes: abnormal pupil (2mm sluggishly reactive) - Respiratory Respiratory: bilateral: diminished, negative: rales, rhonchi - Cardiovascular Rhythm: regular Abnormal Heart Sounds: no systolic murmur - Gastrointestinal General gastrointestinal: no normal bowel sounds, no organomegaly, soft - Neurologic sedated NO posturing is noted Results CBC & Chem 7: 03/06/17 11:16 03/06/17 11:16 Labs: Abnormal Lab Results - Last 24 Hours (Table) 03/06/17 03/06/17 03/06/17 Range/Units 10:53 11:16 11:16 ABG pH (7.35-7.45) ABG pCO2 (35-45) mmHg ABG pO2 (83-108) mmHg ABG HCO3 (21-25) mmol/L ABG O2 Saturation (94-97) % Potassium 5.6 H (3.5-5.1) mmol/L Carbon Dioxide 14 L (22-30) mmol/L Creatinine 1.40 H (0.66-1.25) mg/dL Glucose 292 H (74-99) mg/dL POC Glucose (mg/dL) 184 H (75-99) mg/dL Plasma Lactic Acid Scooter 12.7 H* (0.7-2.0) mmol/L Magnesium 2.4 H (1.6-2.3) mg/dL AST 79 H (17-59) U/L ALT 78 H (21-72) U/L Total Protein 5.8 L (6.3-8.2) g/dL 03/06/17 03/06/17 03/06/17 Range/Units 12:03 15:08 16:09 ABG pH 7.05 L* (7.35-7.45) ABG pCO2 76 H* (35-45) mmHg ABG pO2 >400 H 131 H (83-108) mmHg ABG HCO3 20 L 20 L (21-25) mmol/L ABG O2 Saturation 99.9 H 99.0 H (94-97) % Potassium (3.5-5.1) mmol/L Carbon Dioxide (22-30) mmol/L Creatinine (0.66-1.25) mg/dL Glucose (74-99) mg/dL POC Glucose (mg/dL) (75-99) mg/dL Plasma Lactic Acid Scooter 2.3 H* (0.7-2.0) mmol/L Magnesium (1.6-2.3) mg/dL AST (17-59) U/L ALT (21-72) U/L Total Protein (6.3-8.2) g/dL Assessment and Plan Plan: 51 yr s/p Cardiopulmonary arrest downtime in excess of 50 minutes Pulmonary HTN COPD History of PE Obesity Hyperkalemia Severe metabolic and respiratory acidosis MEME Acute hypoxic and hypercapnic respiratory failure Plan ICU support prognosis is spoor repeat abg sodium bicarb solution repeat labs in the am discussed with the in length regarding his prognosis and further discussion after pt's status on sedation vacation mary[place]uy Hold off anticoagulation as pt may need a central line
[2017-03-06] MEDS ORDERED: methylPREDNISolone SOD SUCCI 125 MG/2 ML VIAL IV SCH (18:00)
[2017-03-06] MEDS ORDERED: DEXTROSE 5% IN WATER 1,000 ML with SODIUM BICARB (1 MEQ/ML) 150 ML IV ONE (18:30)
[2017-03-06] MEDS ORDERED: SODIUM CHLORIDE 0.45% 1,000 ML with SODIUM BICARB (1 MEQ/ML) 150 ML IV ONE ×2 (18:30)
--- NOTE | 2017-03-06 19:26 | CONS ---
Claude Veloz is a 51 -year-old male who came to our office today to undergo pulmonary function testing. He was undergoing a metabolic test and was in the recovery phase when he started to complain of shortness of breath. He subsequently was noted to have some wheezing. He became hypoxic. Subsequently he had a cardiac arrest. The 911 was called. The fire department came. Subsequently, he was taken to [facility]. He was seen in the ED. Subsequently he was intubated. CPR was performed during this time. Initially he apparently was in asystole and subsequently got back into a normal sinus rhythm. He is on the vent at this time and does not follow any commands. He initially had pupils that were fixed and dilated. Subsequently, they started to minimally respond to light. He is triggering the vent at this time. His past medical history is positive for massive pulmonary embolism for which he is on Xarelto. History of obesity. History of obstructive sleep apnea. History of COPD with asthma. Past medical history is also positive for cor pulmonale. SOCIAL HISTORY: The patient is a smoker. Does not drink alcohol excessively . Family history was reviewed. MEDICATIONS: Prior to admission were: 1. Albuterol. 2. Budesonide. 3. Coreg. 4. Lasix. 5. Xarelto. THE PATIENT IS ALLERGIC TO WALNUTS, ORANGE JUICE AND APPARENTLY AND OREO COOKIES. Review of systems is noncontributory. On physical examination, the patient is unresponsive on the vent. His blood pressure was 163/94. Respiratory rate 14. Pulse rate 117. He is afebrile. O2 sat on 100% FIO2 was 97%. HEENT reveals pupils are equal. They are small. Reacting to light. ET tube was in place. Jugular veins not visible. Chest reveals decreased breath sounds. Prolonged expiration. Bilateral expiratory wheeze. Cardiovascular system reveals distant heart sounds, S1, S2. S3, no S4. Short systolic murmur. Abdomen is soft. There is 1+ to 2+ pedal edema. White count 8.6. Hemoglobin 15.5. PT/INR of 1.1. Sodium 140. Potassium 5.6. Chloride 105. Bicarb 14. BUN 11, creatinine 1.4. Anion gap 21. Glucose 292. Plasma lactic acid venous is 12.7. Magnesium 2.4, AST 79, ALT 78. Albumin 3.5. The patient does not follow any commands or respond to any stimuli at this time. CT scan of the chest was done to rule out the possibility of PE. There is no evidence of PE. There is left lower lobe atelectasis or infiltrate. IMPRESSION: 1. Status post cardiac arrest. 2. Severe chronic obstructive pulmonary disease with asthma with exacerbation. 3. Cor pulmonale. 4. Obstructive sleep apnea. 5. Previous history of pulmonary embolism. 6. Lactic acidosis which may be due to low flow state and ( ). 7. Possible aspiration with early aspiration pneumonia. At this point in time, would keep the patient on ventilator. Decrease need for sedation until he is neurologically more awake. Have neurology further evaluate the patient. Have cardiology evaluate the patient. Keep the patient on IV steroids. Bronchodilators. Aerosolized steroids. Add IV antibiotics in the form of Zosyn to cover for anaerobes as he may have aspirated. Consider to continue anticoagulation. However, there seems to be coffee grounds in the orogastric tube and we will decide anticoagulation depending on his stability. He may have suffered from anoxic brain injury and this along with his current status was discussed with his . Prognosis guarded. MTDD
[2017-03-06 19:59] LABS: Glucose,Whole Blood 247 mg/dL (75-99)
[2017-03-06] MEDS ORDERED: DEXAMETHASONE SOD PHOSPHATE 10 MG/ML 1 ML VIAL IV STA (21:33)
--- NOTE | 2017-03-06 21:36 | CT ---
EXAMINATION TYPE: CT brain wo con DATE OF EXAM: 03/06/2017 COMPARISON: NONE HISTORY: Xarelto use with unexplained unresponsiveness. CT DLP: 1045.00 mGycm Automated exposure control for dose reduction was used. FINDINGS: There is symmetric hypoattenuation of the basal ganglia, with symmetric diffuse brain paren chymal swelling and with obliteration of the basal cisterns. There is relative hyperdensity to the ar terial structures, in a diffuse pattern, likely standing out against the edematous brain parenchyma a nd the obliterated basal cisterns. The constellation of findings are consistent with anoxic encephalopathy, and can be further character ized using MRI if clinically indicated. Results discussed with Dr. Izaguirre at 9:30 PM. IMPRESSION: FINDINGS CONSISTENT WITH ANOXIC ENCEPHALOPATHY.
[2017-03-06] MEDS: BUDESONIDE 0.5 MG/2 ML NEBU INHALATION SCH (21:51)
--- NOTE | 2017-03-06 22:45 | P.CNNES ---
History of Present Illness Consult date: 03/06/17 Reason for Consult: Patient is unresponsive in the ICU following cardiac arrest. History of Present Illness: Neurology consultation was notified to Dr. Julia Izaguirre on 03/06/2017 at 8:10 PM. This patient is a 51-year-old right-handed white male who was at his ophthalmic medical technologist office for evaluation of COPD and pulmonary hypertension. The patient was undergoing pulmonary function studies including pulmonary stress test in the ophthalmic medical technologist office. After finishing a minute of this evaluation he began having difficulty with his breathing. He was given some of Treatments but this did not help. The patient apparently collapsed and went into full cardiac arrest. Resuscitation was started immediately by the the office staff. Resuscitation was started at the pulmonary clinic and EMS was called to the scene. CPR was continued for about 20 minutes before pulse was obtained. He was having periods of asystole with PEA as well. This was all going on during the cardiac arrest code. The patient continued to be showing signs of complete cardiac arrest. It was estimated his downtime was nearly 15 minutes before he was intubated in the ER and stabilized. He was admitted to the intensive care unit for further management following intubation. Neurology was contacted at 8: 10 PM this evening for neurology consultation. As the patient had been taking Xarelto prior to his cardiac arrest we did recommended that he undergo a computed tomography scan of the brain to rule out intracerebral hemorrhage. Patient was sent for a stat CT of the brain this evening. The results of the CAT scan revealed evidence of severe anoxic injury to the brain. There is no evidence of acute hemorrhage. The patient remains intubated and unresponsive in the intensive care unit. He is on 40 mics of Diprivan currently. Due to the severity of the anoxic brain injury we have recommended to start the patient on IV Decadron. The patient was examined in the intensive care unit this evening. He has no brainstem reflexes on exam at this time. He does not withdraw to painful stimuli. His overall prognosis at this time remains very guarded. We have discussed the findings of his computed tomography scan and neurological exam findings with the patient who is at bedside. We updated her on his very poor prognosis at this time. We are recommending a repeat computed tomography scan of the brain to be done tomorrow as well as a routine EEG for further aid in long-term prognosis. As noted his downtime was quite extensive nearing 50 minutes in duration. Given the results of his computed tomography scan and his neurological examination at this time is prognosis remains very poor. The was completely updated on his overall neurological status at this time. She was updated on his computed tomography scan results that was just completed. She is aware of his very poor prognosis. We will continue close neurological follow-up of this patient and we will await further recommendations from pulmonary medicine. Neurology is now been consulted for further evaluation and recommendations. Review of Systems ROS unobtainable: due to endotracheal tube Constitutional: Denies chills, Denies fever Eyes: denies blurred vision, denies pain Ears, nose, mouth and throat: Denies headache, Denies sore throat Cardiovascular: Denies chest pain, Denies shortness of breath Respiratory: Denies cough Gastrointestinal: Denies abdominal pain, Denies diarrhea, Denies nausea, Denies vomiting Musculoskeletal: Denies myalgias Integumentary: Denies pruritus, Denies rash Neurological: Denies numbness, Denies weakness Psychiatric: Denies anxiety, Denies depression Endocrine: Denies fatigue, Denies weight change Past Medical History Past Medical History: Asthma, COPD, Pulmonary Embolus (PE), Sleep Apnea/CPAP/ BIPAP Additional Past Medical History / Comment(s): Cor pulmonale History of Any Multi-Drug Resistant Organisms: Unobtainable Past Surgical History: Unable to Obtain Past Psychological History: Unable to Obtain Smoking Status: Current every day smoker Past Alcohol Use History: Unable to Obtain Past Drug Use History: Unable to Obtain Medications and Allergies Home Medications Medication Instructions Recorded Confirmed Type Albuterol Inhaler [Ventolin Hfa 1 - 2 puff INHALATION RT-Q6H PRN 03/06/17 History Inhaler] Albuterol Nebulized [Ventolin 2.5 mg INHALATION RT-Q4H PRN 03/06/17 03/06/17 History Nebulized] Budesonide [Pulmicort] 0.5 mg INHALATION RT-BID 03/06/17 03/06/17 History Carvedilol [Coreg] 6.25 mg PO BID 03/06/17 03/06/17 History Furosemide [Lasix] 40 mg PO DAILY 03/06/17 03/06/17 History Rivaroxaban [Xarelto] 20 mg PO W/SUPPER 03/06/17 03/06/17 History Allergies Allergy/AdvReac Type Severity Reaction Status Date / Time walnut Allergy Unknown Verified 03/06/17 11:37 ORANGE JUICE PULP Allergy Unknown Uncoded 03/06/17 11:37 OREO COOKIES Allergy Unknown Uncoded 03/06/17 11:37 Physical Examination - Vital Signs Vital Signs: Vital Signs Temp Pulse Pulse Resp BP BP Pulse Ox 03/06/17 18:30 89 14 134/81 98 03/06/17 17:56 98.8 F 90 14 134/82 99 03/06/17 17:35 89 03/06/17 17:17 90 03/06/17 17:13 99 03/06/17 16:38 99.1 F 90 18 135/85 98 03/06/17 15:34 96 18 140/85 98 03/06/17 15:07 101 H 18 147/94 98 03/06/17 14:30 108 H 18 168/82 95 03/06/17 14:08 111 H 18 178/105 93 L 03/06/17 13:40 91 L 03/06/17 13:30 114 H 14 191/105 90 L 03/06/17 13:19 114 H 14 192/121 95 03/06/17 12:55 106 H 14 173/100 96 03/06/17 12:45 102 H 14 171/100 97 03/06/17 12:40 100 14 165/93 97 03/06/17 12:30 98 163/94 97 03/06/17 12:25 95 14 161/93 97 03/06/17 12:20 98.0 F 92 14 158/91 98 03/06/17 12:15 98.0 F 90 14 156/91 97 03/06/17 11:55 90 14 157/94 99 03/06/17 11:50 94 14 144/88 99 03/06/17 11:45 96 14 133/83 99 03/06/17 11:40 96 14 112/70 99 03/06/17 11:34 95 14 92/55 99 03/06/17 11:24 93 14 88/49 100 03/06/17 11:20 97.2 F L 93 14 116/51 100 03/06/17 11:16 98 14 113/43 100 Intake and Output 03/06/17 03/06/17 03/06/17 06:59 14:59 22:59 Intake Total 35.045 73.705 Output Total 1100 1200 Balance -1064.955 -1126.295 Intake: Intake, IV Titration 35.045 73.705 Amount Norepinephrin 4 mg-0.9% 8.75 Ns Pmx 4 mg In 250 ml @ 5 MCG/MIN 18.75 mls/hr IV .G18H42P [facility] Rx#: [id number] Propofol 1,000 mg In 100 26.295 73.705 ml @ 20 MCG/KG/MIN 18.507 mls/hr IV .Q5H25M [facility] Rx #:[id number] Output: Gastric Drainage 550 Urine 1100 650 Other: Weight 154.221 kg Patient Weight 03/07/17 06:59 Weight 154.221 kg - Constitutional General appearance: average body habitus - EENT EENT: PERRL, mucous membranes moist - Respiratory Respiratory: lungs clear, normal breath sounds - Cardiovascular Cardiovascular: regular rate, normal S1, normal S2 Extremities: no peripheral edema bilaterally - Gastrointestinal Gastrointestinal: normoactive bowel sounds - Integumentary Integumentary: normal - Neurologic Cranial nerve examination: V1/V2/V3 grossly intact, face symmetric, tongue midline Speech examination: global aphasia Detailed motor examination: other (The patient has decreased tone in all 4 extremities. He does not withdraw to painful stimuli over all 4 extremities.) Detailed sensory examination: intact Reflex and gait examination: intact Reflexes: 0: ankle, bicep, knee, tricep - Musculoskeletal Musculoskeletal: no pain Results - Laboratory Findings CBC and BMP: 03/06/17 11:16 03/06/17 11:16 Abnormal Lab Findings: Abnormal Labs 03/06/17 03/06/17 03/06/17 10:53 11:16 11:16 ABG pH ABG pCO2 ABG pO2 ABG HCO3 ABG O2 Saturation Potassium 5.6 H Carbon Dioxide 14 L Creatinine 1.40 H Glucose 292 H POC Glucose (mg/dL) 184 H Plasma Lactic Acid Scooter 12.7 H* Magnesium 2.4 H AST 79 H ALT 78 H Troponin I Total Protein 5.8 L 03/06/17 03/06/17 03/06/17 12:03 15:08 16:09 ABG pH 7.05 L* ABG pCO2 76 H* ABG pO2 >400 H 131 H ABG HCO3 20 L 20 L ABG O2 Saturation 99.9 H 99.0 H Potassium Carbon Dioxide Creatinine Glucose POC Glucose (mg/dL) Plasma Lactic Acid Scooter 2.3 H* Magnesium AST ALT Troponin I Total Protein 03/06/17 03/06/17 17:54 19:50 ABG pH ABG pCO2 ABG pO2 ABG HCO3 ABG O2 Saturation Potassium Carbon Dioxide Creatinine Glucose POC Glucose (mg/dL) 247 H Plasma Lactic Acid Scooter Magnesium AST ALT Troponin I 0.103 H* Total Protein Assessment and Plan (1) Anoxic-ischemic encephalopathy Status: Acute Code(s): G93.1 - ANOXIC BRAIN DAMAGE, NOT ELSEWHERE CLASSIFIED; I67.82 - CEREBRAL ISCHEMIA (2) Cardiopulmonary arrest Status: Acute Code(s): I46.9 - CARDIAC ARREST, CAUSE UNSPECIFIED (3) Cor pulmonale Status: Acute Code(s): I27.81 - COR PULMONALE (CHRONIC) (4) PEA (Pulseless electrical activity) Status: Acute Code(s): I46.9 - CARDIAC ARREST, CAUSE UNSPECIFIED Plan: This patient is a 51-year-old right-handed white male who was having an appointment with his ophthalmic medical technologist. Patient was undergoing home [place] function studies including pulmonary stress test. Apparently he became stiff acutely short of breath and collapsed and went into full cardiac arrest. CPR was immediately started and EMS was called to the scene. He had a downtime estimated to be close to 50 minutes in duration. He was brought into the emergency room where he was intubated and transferred to the intensive care unit. We did order a stat computed tomography scan of the brain which revealed findings consistent with a anoxic encephalopathy. He was examined in the intensive care unit and his neurological examination reveals absence of brainstem reflexes. He does not withdraw to painful stimuli. We have recommended a repeat computed tomography scan of the brain to be done tomorrow for follow-up. We will also obtain an EEG. The case was discussed at length with the patient's who was at bedside. She was updated on all of his current test results and neurological exam findings. We will continue all supportive care for this patient at this time. His overall prognosis at this time remains very guarded. Time with Patient: Greater than 30
[2017-03-06] MEDS: LORazepam 2 MG/ML SYRINGE IV PRN (23:13)
[2017-03-07 00:27] LABS: Glucose,Whole Blood 251 mg/dL (75-99)
[2017-03-07] MEDS: INSULIN LISPRO (humaLOG) 300 UNIT/3 ML VIAL SQ SCH ×4 (00:27→19:03)
[2017-03-07] MEDS: PIPERACILLIN-TAZOBACTAM 3.375 GM in DEXTROSE/WATER 1 50ML.BAG IVPB SCH ×3 (00:31→16:13)
[2017-03-07] MEDS: DEXAMETHASONE SOD PHOSPHATE 4 MG/ML 1 ML VIAL IV SCH ×6 (00:32→20:33)
[2017-03-07] MEDS: MORPHINE SULFATE 2 MG/ML SYRINGE IV PRN ×2 (01:16→04:22)
[2017-03-07] MEDS: PROPOFOL 1,000 MG/100 ML VIAL IV SCH ×4 (02:06→09:32)
[2017-03-07] MEDS: LORazepam 2 MG/ML SYRINGE IV PRN (05:18)
[2017-03-07 05:36] LABS: Anion Gap 12 mmol/L; Calcium 8.5 mg/dL (8.4-10.2); Carbon Dioxide 22 mmol/L (22-30); Chloride 103 mmol/L (98-107); Glucose 241 mg/dL (74-99); Non-African American GFR(MDRD) >60 (>60 ml/min/1.73 sqM); Sodium 137 mmol/L (137-145); Total Bilirubin 1.2 mg/dL (0.2-1.3)
[2017-03-07 05:38] LABS: ALT 125 U/L (21-72); AST 134 U/L (17-59); Alkaline Phosphatase 58 U/L (38-126); Blood Urea Nitrogen 16 mg/dL (9-20); Phosphorous 2.5 mg/dL (2.5-4.5)
[2017-03-07 06:16] LABS: Basophils % (A) 0 %; CHCM 34.1; Eosinophils % (A) 0 %; HCT 50.4 % (39.0-53.0); HDW 2.72; HGB 16.6 gm/dL (13.0-17.5); Luc # (Auto) 0.06; Luc % (Auto) 0; Lymphocytes # (A) 0.7 k/uL (1.0-4.8); Lymphocytes % (A) 4 %; MCH 30.1 pg (25.0-35.0); Mean Platelet Volume 8.2; Monocytes # (A) 0.4 k/uL (0-1.0); Monocytes % (A) 2 %; Neutrophils # (A) 14.3 k/uL (1.3-7.7); Neutrophils % (A) 93 %; RBC 5.52 m/uL (4.30-5.90); RDW 15.1 % (11.5-15.5); WBC 15.5 k/uL (3.8-10.6); WBC (Perox) 15.82
[2017-03-07 06:28] LABS: MCV 91.4 fL (80.0-100.0)
[2017-03-07 07:00] LABS: Glucose,Whole Blood 229 mg/dL (75-99)
[2017-03-07 07:13] LABS: Appearance,Urine Turbid (Clear); Bilirubin,Urine Negative (Negative); Glucose,Urine (UA) 4+ (Negative); Ketones,Urine 1+ (Negative); Protein,Urine 1+ (Negative); Specific Gravity,Urine 1.036 (1.001-1.035)
[2017-03-07 07:14] LABS: Leukocyte Esterase,Urine Negative (Negative); Nitrite,Urine Negative (Negative); RBC,Urine >182 /hpf (0-5); Squamous Epithelial Cell,Urine 3 /hpf (0-4); UA Billing (MACRO vs. MICRO) MICRO; Urobilinogen,Urine <2.0 mg/dL (<2.0); WBC,Urine 35 /hpf (0-5)
[2017-03-07 07:15] LABS: Amorphous Sediment,Urine Moderate /hpf
[2017-03-07] MEDS: BUDESONIDE 0.5 MG/2 ML NEBU INHALATION SCH ×2 (07:32→19:59)
--- NOTE | 2017-03-07 07:32 | XR ---
EXAMINATION TYPE: XR chest 1V portable DATE OF EXAM: 03/07/2017 HISTORY: Tube placement. REFERENCE: Previous study dated 03/06/2017. FINDINGS: Patient is ET tube has been withdrawn and now overlies the T3-4 disc space in good position . The NG tube remains in place unchanged in appearance. Heart size upper limits of normal. The lungs are clear. Pleural spaces are clear. IMPRESSION: NO ACUTE INTRATHORACIC ABNORMALITY.
[2017-03-07] MEDS: IPRATROPIUM-ALBUTEROL 3 ML NEB INHALATION SCH ×4 (07:33→19:59)
[2017-03-07] MEDS: CHLORHEXIDINE GLUCONATE 15 ML CUP MUCOUS MEM SCH ×2 (09:29→20:34)
[2017-03-07] MEDS: ESOMEPRAZOLE 20 MG in SODIUM CHLORIDE 0.9% 50 ML IVPB SCH (09:46)
--- NOTE | 2017-03-07 09:55 | ECHOF ---
Referral Reason:cardiac arrest MEASUREMENTS -------- HEIGHT: 180.3 cm WEIGHT: 154.2 kg BP: IVSd: 1.1 cm (0.6 - 1.1) LVIDd: 4.9 cm (3.9 - 5.3) LVPWd: 1.2 cm (0.6 - 1.1) IVSs: 1.4 cm LVIDs: 4.1 cm LVPWs: 1.3 cm Ao Diam: 3.5 cm (2.0 - 3.7) AV Cusp: 1.6 cm (1.5 - 2.6) LA Diam: 3.6 cm (2.7 - 3.8) MV EXCURSION: 14.751 mm (> 18.000) MV EF SLOPE: 56 mm/s (70 - 150) EPSS: 1.5 cm MV E Cassius: 0.67 m/s MV DecT: 173 ms MV A Cassius: 0.89 m/s MV E/A Ratio: 0.74 AV maxP.94 mmHg AV meanP.22 mmHg RAP: 5.00 mmHg RVSP: 9.49 mmHg FINDINGS -------- Sinus rhythm. This was a technically difficult study with suboptimal views. There is severe global hypokinesis of LV . Overall left ventricular systolic function is severely impaired with, an EF between 25 - 30 %. The RV was not well visualized. The left atrium was not well visualized. The right atrium was not well visualized. 1.5mg of Definity was utilized for enhancement of images The aortic valve was not well visualized. There is mild aortic stenosis present. Peak/mean gradient across the Aortic Valve is 26.94mmHg / 14.22mmHg. The mitral valve was not well visualized. There is trace mitral regurgitation. The tricuspid valve was not well visualized. Trace tricuspid regurgitation present. The right ventricular systolic pressure, as measured by Doppler, is 9.49mmHg. The pulmonic valve was not well visualized. CONCLUSIONS -------- 1. Sinus rhythm. 2. There is mild aortic stenosis present. 3. Peak/mean gradient across the Aortic Valve is 26.94mmHg / 14.22mmHg. 4. The mitral valve was not well visualized. 5. There is trace mitral regurgitation. 6. The tricuspid valve was not well visualized. 7. Trace tricuspid regurgitation present. 8. The right ventricular systolic pressure, as measured by Doppler, is 9.49mmHg. 9. The pulmonic valve was not well visualized. 10. This was a technically difficult study with suboptimal views. 11. There is severe global hypokinesis of LV . 12. Overall left ventricular systolic function is severely impaired with, an EF between 25 - 30 %. 13. The RV was not well visualized. 14. The left atrium was not well visualized. 15. The right atrium was not well visualized. 16. 1.5mg of Definity was utilized for enhancement of images 17. The aortic valve was not well visualized. ROLL TABLE OPERATOR: Cathleen Laguna RDCS
--- NOTE | 2017-03-07 12:09 | CT ---
EXAMINATION TYPE: CT brain wo con DATE OF EXAM: 03/07/2017 COMPARISON: Previous study dated 03/06/2017. HISTORY: Patient unresponsive CT DLP: 995.5 mGycm Automated exposure control for dose reduction was used. FINDINGS: There are bilateral hypodensities within the basal ganglia bilaterally including the globus pallidus and putamen as well as the caudate lobes. This is more well-defined than on the previous examination. There is diffuse brain swelling. There is obliteration of the basal cisterns. There has been enlarge ment of the ventricles since the previous study. I do not see evidence of midline shift or intracrani al blood. There is chronic mucosal thickening involving the ethmoid air cells bilaterally. IMPRESSION: 1. EVIDENCE OF ACUTE ANOXIC INSULT. 2. INTERVAL ENLARGEMENT OF MILD HYDROCEPHALUS. 3. CHRONIC MUCOPERIOSTEAL THICKENING INVOLVING THE ETHMOID AIR CELLS.
[2017-03-07] MEDS: SODIUM CHLORIDE 0.9% 1,000 ML IV SCH (12:22)
[2017-03-07 12:30] LABS: Glucose,Whole Blood 234 mg/dL (75-99)
--- NOTE | 2017-03-07 15:40 | P.PN ---
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 EMS was called. He was found be pulseless at neck. ACLS protocol was started including an oral airway with bag valve mask and CPR. He remained pulseless, in emergency department, for details please refer to the code sheet however it appears that 20 minutes of ACLS protocol was done in the field and another 35 to 40 minutes in the emergency department. ACLS protocol was continued. After a period of time he did regain pulses. Patient did require oral tracheal intubation in the emergency department. Patient has a history of pneumonia pulmonary hypertension was diagnosed about a year ago at that time he was also on respirator at [facility] exact details are not available Patient seen and evaluated exam and care plan discussed with the primary service as well as the present at bedside at length and nursing staff. Patient remains poorly responsive in deep comatose status GCS is 3, the pupils are fixed and dilated Babinski's are absent no plantar reflex is present no response to deep painful stimuli and remains on for respirator support current vent settings include assist control rate of 18 and tidal volume of 500 his breathing 18 5 of PEEP and 40% oxygen has been evaluated by neurology and cardiovascular services there is a highly likelihood of anoxic injury to the brain is present her culture results and reports are reviewed as well him a critical care time is 35 minutes Objective - Vital Signs Vital signs: Vital Signs Temp 99.0 F 03/07/17 12:00 Pulse 89 03/07/17 15:00 Resp 18 03/07/17 15:00 BP 94/55 03/07/17 15:00 Pulse Ox 94 L 03/07/17 15:00 Intake & Output 03/06/17 03/07/17 03/07/17 18:59 06:59 18:59 Intake Total 410.908 0842 979.507 Output Total 1750 1235 430 Balance -1641.250 80 549.507 Weight 149 kg 149 kg Intake: IV 1015 350 Dextrose 5% in Water 1, 750 000 ml @ 125 mls/hr IV . Q9H12M ONE with Sodium Bicarb (1 Meq/ml) 150 ml Rx#:[id number] Piperacillin-Tazobactam 3 50 .375 gm In Dextrose/Water 1 50ml.bag @ 12.5 mls/hr IVPB Q8HR [facility] Rx#: [id number] Sodium Chloride 0.9% 1, 215 350 000 ml @ 999 mls/hr IV . Q1H1M [facility] Rx#:[id number] Intake, IV Titration 108.750 300 629.507 Amount Norepinephrin 4 mg-0.9% 8.75 Ns Pmx 4 mg In 250 ml @ 5 MCG/MIN 18.75 mls/hr IV .[id number] [facility] Rx#: [id number] Piperacillin-Tazobactam 3 37.5 .375 gm In Dextrose/Water 1 50ml.bag @ 12.5 mls/hr IVPB Q8HR [facility] Rx#: [id number] Propofol 1,000 mg In 100 100.000 300 292.007 ml @ 20 MCG/KG/MIN 18.507 mls/hr IV .Q5H25M [facility] Rx #:[id number] Sodium Chloride 0.9% 1, 300 000 ml @ 75 mls/hr IV . [id number] [facility] Rx#:[id number] Output: Gastric Drainage 550 Urine 1750 685 430 Other: Voiding Method Indwelling Catheter Indwelling Catheter - Exam This is a well-developed well-nourished obese male on full respirator support currently on assist control rate of 14 breathing 28 tidal volume of 550% oxygen and 5 of PEEP patient has IO also 2 peripheral IVs H and is intubated through the mouth also has a OG tube as well with dark coffee-ground stuff Limitations: altered mental status, physical limitation General appearance: other (Unresponsive) Head exam: Present: atraumatic, normocephalic Eye exam: Present: other (Pupils are fixed and dilated) ENT exam: Present: other (Oral airway in place) Neck exam: Present: normal inspection. Absent: tenderness, meningismus, lymphadenopathy Respiratory exam: Bilateral air entry is present with diffuse inspiratory and expiratory wheezing Cardiovascular Exam: Present: S1 and S2 audible no gallop rub or murmur GI/Abdominal exam: Present: other (Obese abdomen) exam: Present: normal inspection Extremities exam: Trace edema is present bilateral good pulses, normal capillary refill Neurological exam: Present: Nonverbal and noncommunicative 3 unresponsive to deep physical and verbal stimuli. Pupils are small and pinpoint Psychiatric exam: Present: other (Unable to evaluate) Skin exam: Present: Not mottled anymore - Labs CBC & Chem 7: 03/07/17 05:47 03/07/17 04:33 Labs: Abnormal Lab Results - Last 24 Hours (Table) 03/06/17 03/06/17 03/06/17 Range/Units 15:08 16:09 17:54 WBC (3.8-10.6) k/uL Neutrophils # (1.3-7.7) k/uL Lymphocytes # (1.0-4.8) k/uL ABG pO2 131 H (83-108) mmHg ABG HCO3 20 L (21-25) mmol/L ABG O2 Saturation 99.0 H (94-97) % Glucose (74-99) mg/dL POC Glucose (mg/dL) (75-99) mg/dL Hemoglobin A1c (4.2-6.1) % Plasma Lactic Acid Scooter 2.3 H* (0.7-2.0) mmol/L AST (17-59) U/L ALT (21-72) U/L Troponin I 0.103 H* (0.000-0.034) ng/mL Total Protein (6.3-8.2) g/dL Ur Specific [place] (1.001-1.035) Urine Protein (Negative) Urine Glucose (UA) (Negative) Urine Ketones (Negative) Urine RBC (0-5) /hpf Urine WBC (0-5) /hpf Amorphous Sediment (None) /hpf 03/06/17 03/06/17 03/06/17 Range/Units 19:50 23:35 23:35 WBC (3.8-10.6) k/uL Neutrophils # (1.3-7.7) k/uL Lymphocytes # (1.0-4.8) k/uL ABG pO2 (83-108) mmHg ABG HCO3 (21-25) mmol/L ABG O2 Saturation (94-97) % Glucose (74-99) mg/dL POC Glucose (mg/dL) 247 H (75-99) mg/dL Hemoglobin A1c 7.0 H (4.2-6.1) % Plasma Lactic Acid [place]ooter (0.7-2.0) mmol/L AST (17-59) U/L ALT (21-72) U/L Troponin I 0.076 H* (0.000-0.034) ng/mL Total Protein (6.3-8.2) g/dL Ur Specific [place] (1.001-1.035) Urine Protein (Negative) Urine Glucose (UA) (Negative) Urine Ketones (Negative) Urine RBC (0-5) /hpf Urine WBC (0-5) /hpf Amorphous Sediment (None) /hpf 03/07/17 03/07/17 03/07/17 Range/Units 00:25 04:33 05:26 WBC (3.8-10.6) k/uL Neutrophils # (1.3-7.7) k/uL Lymphocytes # (1.0-4.8) k/uL ABG pO2 (83-108) mmHg ABG HCO3 (21-25) mmol/L ABG O2 Saturation (94-97) % Glucose 241 H (74-99) mg/dL POC Glucose (mg/dL) 251 H (75-99) mg/dL Hemoglobin A1c (4.2-6.1) % Plasma Lactic Acid Scooter (0.7-2.0) mmol/L AST 134 H (17-59) U/L ALT 125 H (21-72) U/L Troponin I (0.000-0.034) ng/mL Total Protein 6.0 L (6.3-8.2) g/dL Ur Specific [place] 1.036 H (1.001-1.035) Urine Protein 1+ H (Negative) Urine Glucose (UA) 4+ H (Negative) Urine Ketones 1+ H (Negative) Urine RBC >182 H (0-5) /hpf Urine WBC 35 H (0-5) /hpf Amorphous Sediment Moderate H (None) /hpf 03/07/17 03/07/17 03/07/17 Range/Units 05:47 06:47 12:27 WBC 15.5 H (3.8-10.6) k/uL Neutrophils # 14.3 H (1.3-7.7) k/uL Lymphocytes # 0.7 L (1.0-4.8) k/uL ABG pO2 (83-108) mmHg ABG HCO3 (21-25) mmol/L ABG O2 Saturation (94-97) % Glucose (74-99) mg/dL POC Glucose (mg/dL) 229 H 234 H (75-99) mg/dL Hemoglobin A1c (4.2-6.1) % Plasma Lactic Acid [place]ooter (0.7-2.0) mmol/L AST (17-59) U/L ALT (21-72) U/L Troponin I (0.000-0.034) ng/mL Total Protein (6.3-8.2) g/dL Ur Specific [place] (1.001-1.035) Urine Protein (Negative) Urine Glucose (UA) (Negative) Urine Ketones (Negative) Urine RBC (0-5) /hpf Urine WBC (0-5) /hpf Amorphous Sediment (None) /hpf Microbiology - Last 24 Hours (Table) 03/07/17 05:26 Urine Culture - Preliminary Urine,Catheterized 03/06/17 12:40 Gram Stain - Preliminary Sputum Sputum Culture - Preliminary Strep agalactiae - (group b) Assessment and Plan Plan: Impression #1 status post cardiopulmonary arrest #2 severe profound metabolic acidosis related to above, improved on respirator #3 severe morbid obesity obstructive sleep apnea and pulmonary hypertension #4 prior history of pulmonary embolism a year ago has been on XerALTO regularly #5 suspected anoxic injury to the brain #6 aspiration pneumonia likely left lower lobe, sputum positive for strep Plan Supportive care with adjustment of respirator, fluid resuscitation and support, recommendations were made for central line and A-line however family has declined, patient is being started on broad-spectrum antibiotics propofol is being given for comfort and better control on respirator, we'll closely monitor the urine output and mental status, neurology consultation has been initiated, maintain patient on DVT and peptic ulcer disease prophylaxis patient will be resumed on Ashish patient has been already on Zosyn we'll maintain that and follow clinical course closely overall prognosis guarded, with likely her recovery is poor Time with Patient: Greater than 30
--- NOTE | 2017-03-07 16:16 | P.PN ---
Subjective Principal diagnosis: Cardiopulmonary arrest, cardiomyopathy, COPD, hypoxic encephalopathy. This is a 51-year-old gentleman who had a cardiac arrest yesterday. Patient is still intubated. Patient apparently had EEG and the official reading is pending. It appears that patient may have had a severe anoxic encephalopathy. Patient's kidney function appears to be stable. Patient is diuresing well. Patient had an echocardiogram done that showed an ejection fraction about 25-30%. It is not clear if this is chronic in nature or related to acute cardiac event. We'll plan to repeat an echocardiogram in about a week to 10 days' time. However, patient may have severe hypoxic encephalopathy and prognosis looks poor. His troponin values are elevated but not consistent with acute myocardial infarction pattern. Objective - Vital Signs Vital signs: Vital Signs Temp 99.0 F 03/07/17 12:00 Pulse 89 03/07/17 15:00 Resp 18 03/07/17 15:00 BP 94/55 03/07/17 15:00 Pulse Ox 94 L 03/07/17 15:00 Intake & Output 03/06/17 03/07/17 03/07/17 18:59 06:59 18:59 Intake Total 980.708 5652 979.507 Output Total 1750 1235 430 Balance -1641.250 80 549.507 Weight 149 kg 149 kg 149 kg Intake: IV 1015 350 Dextrose 5% in Water 1, 750 000 ml @ 125 mls/hr IV . Q9H12M ONE with Sodium Bicarb (1 Meq/ml) 150 ml Rx#:[id number] Piperacillin-Tazobactam 3 50 .375 gm In Dextrose/Water 1 50ml.bag @ 12.5 mls/hr IVPB Q8HR [facility] Rx#: [id number] Sodium Chloride 0.9% 1, 215 350 000 ml @ 999 mls/hr IV . Q1H1M [facility] Rx#:[id number] Intake, IV Titration 108.750 300 629.507 Amount Norepinephrin 4 mg-0.9% 8.75 Ns Pmx 4 mg In 250 ml @ 5 MCG/MIN 18.75 mls/hr IV .[id number] [facility] Rx#: [id number] Piperacillin-Tazobactam 3 37.5 .375 gm In Dextrose/Water 1 50ml.bag @ 12.5 mls/hr IVPB Q8HR [facility] Rx#: [id number] Propofol 1,000 mg In 100 100.000 300 292.007 ml @ 20 MCG/KG/MIN 18.507 mls/hr IV .Q5H25M [facility] Rx #:[id number] Sodium Chloride 0.9% 1, 300 000 ml @ 75 mls/hr IV . [id number] [facility] Rx#:[id number] Output: Gastric Drainage 550 Urine 1750 685 430 Other: Voiding Method Indwelling Catheter Indwelling Catheter - Exam GENERAL EXAM: Patient intubated HEENT: Normocephalic. NECK: No masses, no nuchal rigidity. CHEST: No chest wall deformity. LUNGS: Diminished breath sounds HEART: S1 and S2 normal ABDOMEN: Soft CENTRAL NERVOUS SYSTEM: As per neurology. EXTREMITIES: No cyanosis, clubbing or edema. - Labs CBC & Chem 7: 03/07/17 05:47 03/07/17 04:33 Labs: Abnormal Lab Results - Last 24 Hours (Table) 03/06/17 03/06/17 03/06/17 Range/Units 16:09 17:54 19:50 WBC (3.8-10.6) k/uL Neutrophils # (1.3-7.7) k/uL Lymphocytes # (1.0-4.8) k/uL ABG pO2 131 H (83-108) mmHg ABG HCO3 20 L (21-25) mmol/L ABG O2 Saturation 99.0 H (94-97) % Glucose (74-99) mg/dL POC Glucose (mg/dL) 247 H (75-99) mg/dL Hemoglobin A1c (4.2-6.1) % AST (17-59) U/L ALT (21-72) U/L Troponin I 0.103 H* (0.000-0.034) ng/mL Total Protein (6.3-8.2) g/dL Ur Specific [place] (1.001-1.035) Urine Protein (Negative) Urine Glucose (UA) (Negative) Urine Ketones (Negative) Urine RBC (0-5) /hpf Urine WBC (0-5) /hpf Amorphous Sediment (None) /hpf 03/06/17 03/06/17 03/07/17 Range/Units 23:35 23:35 00:25 WBC (3.8-10.6) k/uL Neutrophils # (1.3-7.7) k/uL Lymphocytes # (1.0-4.8) k/uL ABG pO2 (83-108) mmHg ABG HCO3 (21-25) mmol/L ABG O2 Saturation (94-97) % Glucose (74-99) mg/dL POC Glucose (mg/dL) 251 H (75-99) mg/dL Hemoglobin A1c 7.0 H (4.2-6.1) % AST (17-59) U/L ALT (21-72) U/L Troponin I 0.076 H* (0.000-0.034) ng/mL Total Protein (6.3-8.2) g/dL Ur Specific [place] (1.001-1.035) Urine Protein (Negative) Urine Glucose (UA) (Negative) Urine Ketones (Negative) Urine RBC (0-5) /hpf Urine WBC (0-5) /hpf Amorphous Sediment (None) /hpf 03/07/17 03/07/17 03/07/17 Range/Units 04:33 05:26 05:47 WBC 15.5 H (3.8-10.6) k/uL Neutrophils # 14.3 H (1.3-7.7) k/uL Lymphocytes # 0.7 L (1.0-4.8) k/uL ABG pO2 (83-108) mmHg ABG HCO3 (21-25) mmol/L ABG O2 Saturation (94-97) % Glucose 241 H (74-99) mg/dL POC Glucose (mg/dL) (75-99) mg/dL Hemoglobin A1c (4.2-6.1) % AST 134 H (17-59) U/L ALT 125 H (21-72) U/L Troponin I (0.000-0.034) ng/mL Total Protein 6.0 L (6.3-8.2) g/dL Ur Specific [place] 1.036 H (1.001-1.035) Urine Protein 1+ H (Negative) Urine Glucose (UA) 4+ H (Negative) Urine Ketones 1+ H (Negative) Urine RBC >182 H (0-5) /hpf Urine WBC 35 H (0-5) /hpf Amorphous Sediment Moderate H (None) /hpf 03/07/17 03/07/17 Range/Units 06:47 12:27 WBC (3.8-10.6) k/uL Neutrophils # (1.3-7.7) k/uL Lymphocytes # (1.0-4.8) k/uL ABG pO2 (83-108) mmHg ABG HCO3 (21-25) mmol/L ABG O2 Saturation (94-97) % Glucose (74-99) mg/dL POC Glucose (mg/dL) 229 H 234 H (75-99) mg/dL Hemoglobin A1c (4.2-6.1) % AST (17-59) U/L ALT (21-72) U/L Troponin I (0.000-0.034) ng/mL Total Protein (6.3-8.2) g/dL Ur Specific [place] (1.001-1.035) Urine Protein (Negative) Urine Glucose (UA) (Negative) Urine Ketones (Negative) Urine RBC (0-5) /hpf Urine WBC (0-5) /hpf Amorphous Sediment (None) /hpf Microbiology - Last 24 Hours (Table) 03/07/17 05:26 Urine Culture - Preliminary Urine,Catheterized 03/06/17 12:40 Gram Stain - Preliminary Sputum Sputum Culture - Preliminary Strep agalactiae - (group b) Assessment and Plan (1) Cardiopulmonary arrest Status: Acute (2) Lactic acidosis Status: Acute (3) Cor pulmonale Status: Acute (4) COPD (chronic obstructive pulmonary disease) Status: Acute (5) Hypoxic encephalopathy Status: Acute (6) History of pulmonary embolism Status: Acute Plan: Echo cardiogram shows severe cardiomyopathy picture. Cardiac enzymes studies are not suggestive of acute myocardial infarction. We'll may be dealing with a severe anoxic encephalopathy. Neurology is following.
--- NOTE | 2017-03-07 16:37 | P.PN ---
Subjective 51 yr old with history of PE, Pumonary HTN is admitted to the hospital after pt sustained a CP arrest at Dr Lester's office while undergoing PFT's Pt apparently underwent resuscitation in the ambulance and required further resuscitation in the ER. Total downtime is estimated around 50-60 minutes Pt is currently on the ventilator Initial pH was 7.05 pt also required vasopressor support for a short duration of time Pt is currently on propofol NO purposeful movements are appreciated so far EKG reveals a RBBB no st elevations 03/07/17 ct scan of head showed multiple hypodensities off propofol pupils are non reactive no purposeful movements - Constitutional General appearance: obese - EENT Eyes: abnormal pupil 7mm, non reactive - Respiratory Respiratory: bilateral: diminished, negative: rales, rhonchi - Cardiovascular Rhythm: regular Abnormal Heart Sounds: no systolic murmur - Gastrointestinal General gastrointestinal: no normal bowel sounds, no organomegaly, soft - Neurologic No voluntary movements no painful reflexes DTR are equivocal on the ventilator no resp. Drive noted Objective - Vital Signs Vital signs: Vital Signs Temp 98.2 F 03/07/17 16:00 Pulse 90 03/07/17 16:32 Resp 18 03/07/17 16:00 BP 95/58 03/07/17 16:00 Pulse Ox 94 L 03/07/17 16:00 Intake & Output 03/06/17 03/07/17 03/07/17 18:59 06:59 18:59 Intake Total 936.991 9869 1067.007 Output Total 1750 1235 1130 Balance -1641.250 80 -62.993 Weight 149 kg 149 kg 149 kg Intake: IV 1015 362.5 Dextrose 5% in Water 1, 750 000 ml @ 125 mls/hr IV . Q9H12M ONE with Sodium Bicarb (1 Meq/ml) 150 ml Rx#:[id number] Piperacillin-Tazobactam 3 50 12.5 .375 gm In Dextrose/Water 1 50ml.bag @ 12.5 mls/hr IVPB Q8HR [facility] Rx#: [id number] Sodium Chloride 0.9% 1, 215 350 000 ml @ 999 mls/hr IV . Q1H1M [facility] Rx#:[id number] Intake, IV Titration 108.750 300 704.507 Amount Norepinephrin 4 mg-0.9% 8.75 Ns Pmx 4 mg In 250 ml @ 5 MCG/MIN 18.75 mls/hr IV .[id number] [facility] Rx#: [id number] Piperacillin-Tazobactam 3 37.5 .375 gm In Dextrose/Water 1 50ml.bag @ 12.5 mls/hr IVPB Q8HR [facility] Rx#: [id number] Propofol 1,000 mg In 100 100.000 300 292.007 ml @ 20 MCG/KG/MIN 18.507 mls/hr IV .Q5H25M [facility] Rx #:[id number] Sodium Chloride 0.9% 1, 375 000 ml @ 75 mls/hr IV . [id number] [facility] Rx#:[id number] Output: Gastric Drainage 550 250 Urine 1750 685 880 Other: Voiding Method Indwelling Catheter Indwelling Catheter - Labs CBC & Chem 7: 03/07/17 05:47 03/07/17 04:33 Labs: Abnormal Lab Results - Last 24 Hours (Table) 03/06/17 03/06/17 03/06/17 Range/Units 16:09 17:54 19:50 WBC (3.8-10.6) k/uL Neutrophils # (1.3-7.7) k/uL Lymphocytes # (1.0-4.8) k/uL ABG pO2 131 H (83-108) mmHg ABG HCO3 20 L (21-25) mmol/L ABG O2 Saturation 99.0 H (94-97) % Glucose (74-99) mg/dL POC Glucose (mg/dL) 247 H (75-99) mg/dL Hemoglobin A1c (4.2-6.1) % AST (17-59) U/L ALT (21-72) U/L Troponin I 0.103 H* (0.000-0.034) ng/mL Total Protein (6.3-8.2) g/dL Ur Specific [place] (1.001-1.035) Urine Protein (Negative) Urine Glucose (UA) (Negative) Urine Ketones (Negative) Urine RBC (0-5) /hpf Urine WBC (0-5) /hpf Amorphous Sediment (None) /hpf 03/06/17 03/06/17 03/07/17 Range/Units 23:35 23:35 00:25 WBC (3.8-10.6) k/uL Neutrophils # (1.3-7.7) k/uL Lymphocytes # (1.0-4.8) k/uL ABG pO2 (83-108) mmHg ABG HCO3 (21-25) mmol/L ABG O2 Saturation (94-97) % Glucose (74-99) mg/dL POC Glucose (mg/dL) 251 H (75-99) mg/dL Hemoglobin A1c 7.0 H (4.2-6.1) % AST (17-59) U/L ALT (21-72) U/L Troponin I 0.076 H* (0.000-0.034) ng/mL Total Protein (6.3-8.2) g/dL Ur Specific [place] (1.001-1.035) Urine Protein (Negative) Urine Glucose (UA) (Negative) Urine Ketones (Negative) Urine RBC (0-5) /hpf Urine WBC (0-5) /hpf Amorphous Sediment (None) /hpf 03/07/17 03/07/17 03/07/17 Range/Units 04:33 05:26 05:47 WBC 15.5 H (3.8-10.6) k/uL Neutrophils # 14.3 H (1.3-7.7) k/uL Lymphocytes # 0.7 L (1.0-4.8) k/uL ABG pO2 (83-108) mmHg ABG HCO3 (21-25) mmol/L ABG O2 Saturation (94-97) % Glucose 241 H (74-99) mg/dL POC Glucose (mg/dL) (75-99) mg/dL Hemoglobin A1c (4.2-6.1) % AST 134 H (17-59) U/L ALT 125 H (21-72) U/L Troponin I (0.000-0.034) ng/mL Total Protein 6.0 L (6.3-8.2) g/dL Ur Specific [place] 1.036 H (1.001-1.035) Urine Protein 1+ H (Negative) Urine Glucose (UA) 4+ H (Negative) Urine Ketones 1+ H (Negative) Urine RBC >182 H (0-5) /hpf Urine WBC 35 H (0-5) /hpf Amorphous Sediment Moderate H (None) /hpf 03/07/17 03/07/17 Range/Units 06:47 12:27 WBC (3.8-10.6) k/uL Neutrophils # (1.3-7.7) k/uL Lymphocytes # (1.0-4.8) k/uL ABG pO2 (83-108) mmHg ABG HCO3 (21-25) mmol/L ABG O2 Saturation (94-97) % Glucose (74-99) mg/dL POC Glucose (mg/dL) 229 H 234 H (75-99) mg/dL Hemoglobin A1c (4.2-6.1) % AST (17-59) U/L ALT (21-72) U/L Troponin I (0.000-0.034) ng/mL Total Protein (6.3-8.2) g/dL Ur Specific [place] (1.001-1.035) Urine Protein (Negative) Urine Glucose (UA) (Negative) Urine Ketones (Negative) Urine RBC (0-5) /hpf Urine WBC (0-5) /hpf Amorphous Sediment (None) /hpf Microbiology - Last 24 Hours (Table) 03/07/17 05:26 Urine Culture - Preliminary Urine,Catheterized 03/06/17 12:40 Gram Stain - Preliminary Sputum Sputum Culture - Preliminary Strep agalactiae - (group b) Assessment and Plan Plan: 51 yr s/p Cardiopulmonary arrest downtime in excess of 50 minutes Pulmonary HTN COPD History of PE Obesity Hyperkalemia Severe metabolic and respiratory acidosis MEME Acute hypoxic and hypercapnic respiratory failure Plan ICU support prognosis is extremely poor dc sodium bicarb disucssed the case with his EEG pending ct scan results discussed End of life discussion was done states that she is not ready to give up
[2017-03-07] MEDS: RIVAROXABAN 10 MG TAB PO SCH (18:47)
[2017-03-07 19:01] LABS: Glucose,Whole Blood 233 mg/dL (75-99)
--- NOTE | 2017-03-07 22:17 | P.PN ---
Subjective This patient is a 51-year-old male who suffered an acute cardiac arrest and is currently intubated on the ventilator in the intensive care unit. He underwent a routine EEG today for further assessment of his severe anoxic encephalopathy. EEG is severely slow and consistent with severe anoxic encephalopathy to the brain following cardiac arrest. His neurological examination is unchanged from yesterday. Patient's was at bedside. She was updated on the results of the repeat computed tomography scan of the brain which continues to show evidence of severe anoxic encephalopathy. We have reviewed his neurological exam findings and the ICU which revealed him to have absent brainstem reflexes. These findings are all suggesting a very poor prognosis with the patient. would like to continue supportive care for the patient and give him close monitoring in the ICU. We would agree with this as this is her personal wish. She is aware of his very poor prognosis. Patient's neurological examination is unchanged from yesterday. We will continue close neurological follow-up of this patient in the ICU. As noted case was discussed with the patient's who was at bedside. All of her questions were answered. She is aware of his very guarded condition. Objective - Vital Signs Vital signs: Vital Signs Temp 98.2 F 03/07/17 16:00 Pulse 90 03/07/17 20:15 Resp 18 03/07/17 19:00 BP 97/58 03/07/17 19:00 Pulse Ox 95 03/07/17 19:00 Intake & Output 03/07/17 03/07/17 03/08/17 06:59 18:59 06:59 Intake Total 1315 1174.507 87.5 Output Total 1235 1620 225 Balance 80 -445.493 -137.5 Weight 149 kg 149 kg Intake: IV 1015 375.0 12.5 Dextrose 5% in Water 1, 750 000 ml @ 125 mls/hr IV . Q9H12M ONE with Sodium Bicarb (1 Meq/ml) 150 ml Rx#:[id number] Piperacillin-Tazobactam 3 50 25.0 12.5 .375 gm In Dextrose/Water 1 50ml.bag @ 12.5 mls/hr IVPB Q8HR NILSA Rx#: [id number] Sodium Chloride 0.9% 1, 215 350 000 ml @ 999 mls/hr IV . Q1H1M STA Rx#:[id number] Intake, IV Titration 300 779.507 75 Amount Piperacillin-Tazobactam 3 37.5 .375 gm In Dextrose/Water 1 50ml.bag @ 12.5 mls/hr IVPB Q8HR NILSA Rx#: [id number] Propofol 1,000 mg In 100 300 292.007 ml @ 20 MCG/KG/MIN 18.507 mls/hr IV .Q5H25M NILSA Rx #:[id number] Sodium Chloride 0.9% 1, 450 75 000 ml @ 75 mls/hr IV . [id number] NILSA Rx#:[id number] Tube Feeding 20 Output: Gastric Drainage 550 250 Urine 685 1370 225 Other: Voiding Method Indwelling Catheter Indwelling Catheter - Exam Physical examination: PHYSICAL EXAMINATION: Patient is resting comfortably in bed. VITAL SIGNS: Blood pressure is [97/58]. Heart rate is [86]. Respiration is [18] . Temperature is [98.2]. HEENT: Head is atraumatic, neck is supple, there were no carotid bruits. CHEST: Lungs are clear to auscultation and percussion. CARDIAC: S1, S2 normal rate and rhythm. There is no murmur. ABDOMEN: Soft and nontender. Bowel sounds are present. EXTREMITIES: There is no pedal edema. Peripheral pulses are present. Neurological examination: Patient's neurological examination is unchanged from yesterday. Patient remains comatose. He has no brainstem reflexes. - Labs CBC & Chem 7: 03/07/17 05:47 03/07/17 04:33 Labs: Abnormal Lab Results - Last 24 Hours (Table) 03/06/17 03/06/17 03/07/17 Range/Units 23:35 23:35 00:25 WBC (3.8-10.6) k/uL Neutrophils # (1.3-7.7) k/uL Lymphocytes # (1.0-4.8) k/uL Glucose (74-99) mg/dL POC Glucose (mg/dL) 251 H (75-99) mg/dL Hemoglobin A1c 7.0 H (4.2-6.1) % AST (17-59) U/L ALT (21-72) U/L Troponin I 0.076 H* (0.000-0.034) ng/mL Total Protein (6.3-8.2) g/dL Ur Specific [place] (1.001-1.035) Urine Protein (Negative) Urine Glucose (UA) (Negative) Urine Ketones (Negative) Urine RBC (0-5) /hpf Urine WBC (0-5) /hpf Amorphous Sediment (None) /hpf 03/07/17 03/07/17 03/07/17 Range/Units 04:33 05:26 05:47 WBC 15.5 H (3.8-10.6) k/uL Neutrophils # 14.3 H (1.3-7.7) k/uL Lymphocytes # 0.7 L (1.0-4.8) k/uL Glucose 241 H (74-99) mg/dL POC Glucose (mg/dL) (75-99) mg/dL Hemoglobin A1c (4.2-6.1) % AST 134 H (17-59) U/L ALT 125 H (21-72) U/L Troponin I (0.000-0.034) ng/mL Total Protein 6.0 L (6.3-8.2) g/dL Ur Specific [place] 1.036 H (1.001-1.035) Urine Protein 1+ H (Negative) Urine Glucose (UA) 4+ H (Negative) Urine Ketones 1+ H (Negative) Urine RBC >182 H (0-5) /hpf Urine WBC 35 H (0-5) /hpf Amorphous Sediment Moderate H (None) /hpf 03/07/17 03/07/17 03/07/17 Range/Units 06:47 12:27 18:59 WBC (3.8-10.6) k/uL Neutrophils # (1.3-7.7) k/uL Lymphocytes # (1.0-4.8) k/uL Glucose (74-99) mg/dL POC Glucose (mg/dL) 229 H 234 H 233 H (75-99) mg/dL Hemoglobin A1c (4.2-6.1) % AST (17-59) U/L ALT (21-72) U/L Troponin I (0.000-0.034) ng/mL Total Protein (6.3-8.2) g/dL Ur Specific [place] (1.001-1.035) Urine Protein (Negative) Urine Glucose (UA) (Negative) Urine Ketones (Negative) Urine RBC (0-5) /hpf Urine WBC (0-5) /hpf Amorphous Sediment (None) /hpf Microbiology - Last 24 Hours (Table) 03/07/17 05:26 Urine Culture - Preliminary Urine,Catheterized 03/06/17 12:40 Gram Stain - Preliminary Sputum Sputum Culture - Preliminary Strep agalactiae - (group b) Assessment and Plan (1) Anoxic-ischemic encephalopathy Status: Acute Code(s): G93.1 - ANOXIC BRAIN DAMAGE, NOT ELSEWHERE CLASSIFIED; I67.82 - CEREBRAL ISCHEMIA (2) Cardiopulmonary arrest Status: Acute Code(s): I46.9 - CARDIAC ARREST, CAUSE UNSPECIFIED (3) Cor pulmonale Status: Acute Code(s): I27.81 - COR PULMONALE (CHRONIC) (4) PEA (Pulseless electrical activity) Status: Acute Code(s): I46.9 - CARDIAC ARREST, CAUSE UNSPECIFIED Plan: This patient is a 51-year-old right-handed white male who 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 Patient was undergoing pulmonary function studies including pulmonary stress test. Apparently he became stiff acutely short of breath and collapsed and went into full cardiac arrest. CPR was immediately started and EMS was called to the scene. He had a downtime estimated to be close to 50 minutes in duration. He was brought into the emergency room where he was intubated and transferred to the intensive care unit. We did order a stat computed tomography scan of the brain which revealed findings consistent with a anoxic encephalopathy. He was examined in the intensive care unit and his neurological examination reveals absence of brainstem reflexes. He does not withdraw to painful stimuli. We have recommended a repeat computed tomography scan of the brain to be done tomorrow for follow-up. We will also obtain an EEG. The case was discussed at length with the patient's who was at bedside. We did review the results of the repeat computed tomography scan of the brain that was done today. This CAT scan reveals evidence of a anoxic encephalopathy. He also reviewed the results of his EEG that was done today which is consistent with a very severe encephalopathy secondary to anoxia. All of these results were discussed today with the patient's who was admitted bedside. She is aware of his very poor prognosis. She would like to continue supportive care for the patient at this time. She was updated on all of his current test results and neurological exam findings. We will continue all supportive care for this patient at this time. His overall prognosis at this time remains very guarded.
[2017-03-08] MEDS: INSULIN LISPRO (humaLOG) 300 UNIT/3 ML VIAL SQ SCH ×4 (00:17→13:47)
[2017-03-08] MEDS: DEXAMETHASONE SOD PHOSPHATE 4 MG/ML 1 ML VIAL IV SCH ×4 (00:17→13:46)
[2017-03-08 00:18] LABS: Glucose,Whole Blood 258 mg/dL (75-99)
[2017-03-08] MEDS: PIPERACILLIN-TAZOBACTAM 3.375 GM in DEXTROSE/WATER 1 50ML.BAG IVPB SCH ×3 (00:19→16:30)
[2017-03-08] MEDS: SODIUM CHLORIDE 0.9% 1,000 ML IV SCH ×2 (02:43→20:35)
[2017-03-08] MEDS: PROPOFOL 1,000 MG/100 ML VIAL IV SCH ×2 (03:58→20:37)
[2017-03-08 04:04] LABS: Glucose,Whole Blood 225 mg/dL (75-99)
[2017-03-08 05:13] LABS: ABG Base Excess 0.2 mmol/L; ABG HCO3 25 mmol/L (21-25); ABG Oxygen Saturation 95.1 % (94-97); ABG PCO2 46 mmHg (35-45); ABG PH 7.36 (7.35-7.45); ABG PO2 80 mmHg (83-108); ABG TCO2 26 mmol/L (19-24)
[2017-03-08 05:23] LABS: Basophils % (A) 0 %; CH 30.2; CHCM 32.6; Eosinophils % (A) 0 %; HCT 49.1 % (39.0-53.0); HDW 2.81; HGB 15.9 gm/dL (13.0-17.5); Luc % (Auto) 1; Lymphocytes # (A) 0.8 k/uL (1.0-4.8); Lymphocytes % (A) 6 %; MCH 30.1 pg (25.0-35.0); MCHC 32.5 g/dL (31.0-37.0); MCV 92.8 fL (80.0-100.0); Mean Platelet Volume 7.8; Monocytes # (A) 0.5 k/uL (0-1.0); Monocytes % (A) 4 %; Neutrophils # (A) 11.5 k/uL (1.3-7.7); Neutrophils % (A) 89 %; RBC 5.29 m/uL (4.30-5.90); RDW 14.2 % (11.5-15.5); WBC 12.9 k/uL (3.8-10.6); WBC (Perox) 13.22
[2017-03-08 05:41] LABS: Anion Gap 10 mmol/L; Blood Urea Nitrogen 16 mg/dL (9-20); Calcium 8.7 mg/dL (8.4-10.2); Carbon Dioxide 23 mmol/L (22-30); Chloride 112 mmol/L (98-107); Glucose 241 mg/dL (74-99); Magnesium 2.6 mg/dL (1.6-2.3); Non-African American GFR(MDRD) >60 (>60 ml/min/1.73 sqM); Phosphorous 2.9 mg/dL (2.5-4.5); Potassium 4.2 mmol/L (3.5-5.1); Sodium 145 mmol/L (137-145)
--- NOTE | 2017-03-08 07:00 | XR ---
EXAMINATION TYPE: XR chest 1V portable DATE OF EXAM: 03/08/2017 CLINICAL HISTORY: Difficulty breathing progress study. TECHNIQUE: Single AP portable semiupright view of the chest is obtained. COMPARISON: Chest x-ray from one day earlier and CTA chest from 2 days earlier FINDINGS: An endotracheal tube and orogastric tube are stable in appearance. Cardiac silhouette size is mildly enlarged. There is new left basilar opacity partially silhouetting left hemidiaphragm felt to reflect developing infiltrate and/or atelectasis. Right lung remains clear. No large pleural effu jennifer or pneumothorax is seen bilaterally. Chronic parenchymal changes in lung apices are seen better on recent CT. IMPRESSION: Cardiomegaly with more prominent left basilar atelectasis and/or infiltrate noted.
[2017-03-08] MEDS: BUDESONIDE 0.5 MG/2 ML NEBU INHALATION SCH ×2 (07:30→19:01)
[2017-03-08] MEDS: IPRATROPIUM-ALBUTEROL 3 ML NEB INHALATION SCH ×4 (07:30→19:01)
[2017-03-08 08:20] LABS: Glucose,Whole Blood 229 mg/dL (75-99)
--- NOTE | 2017-03-08 08:44 | PN ---
DATE OF SERVICE: 03/07/17 The patient was seen again on 03/07/17. He has been hemodynamically stable. However, he has not responded neurologically. He does not trigger the vent and does not follow any commands. He does not respond to any noxious stimuli. On physical examination, he is in bed. He does not follow any commands. He does not respond to any stimuli. His pupils are fixed, dilated. ET tube is in place. Blood pressure is 95/56. Respiratory rate is 18. Pulse rate 87. . O2 sat on 40% FIO2 is 94%. HEENT reveals ET tube in place. Chest reveals occasional wheeze. Prolonged expiration. Cardiovascular reveals S1, S2. Abdomen is soft. There is 1+ pedal edema. White count is 15.5. Hemoglobin 16.6. CT scan of the head was done this morning at 10:00 a.m. which showed evidence of acute anoxic insult with mild hydrocephalus and hypodensities in the basal ganglia bilaterally including the globus palatas ( ) as well as the caudate lobes. IMPRESSION: 1. Status post cardiac arrest. 2. Anoxic encephalopathy. 3. Possible irreversible brain damage. 4. Severe chronic obstructive pulmonary disease with 5. History of pulmonary embolism. 6. Cardiomyopathy. At this point in time, from a pulmonary standpoint, would continue supportive care. Agree with overall care at this time. Continue vent support. I did discuss the patients condition and prognosis with the . The patients prognosis is guarded. We will defer to neurology regarding final neurological recommendations. KERRIE
[2017-03-08] MEDS: ESOMEPRAZOLE 20 MG in SODIUM CHLORIDE 0.9% 50 ML IVPB SCH (08:49)
[2017-03-08] MEDS: CHLORHEXIDINE GLUCONATE 15 ML CUP MUCOUS MEM SCH ×2 (08:49→21:29)
--- NOTE | 2017-03-08 09:03 | EEG ---
INDICATIONS FOR EXAMINATION: This patient is a 51 -year-old male who suffered witnessed cardiac arrest. The patient is currently intubated on the ventilator and is unresponsive to any stimuli. The patients estimated downtime was 50 minutes. AGE : 51. EEG FINDINGS: A routine digital EEG recording was accomplished utilizing the 10 -20 international system with bipolar and referential montages. The background activity at a sensitivity setting of 7 microvolts reveals minimal brain activity. At a sensitivity setting of 3 microvolts, there is low amplitude, beta activity seen throughout. At a sensitivity setting of 7 microvolts, once again there is very little brain activity seen. Occasional EKG artifact is noted. Hyperventilation was not performed. Photic stimulation at flash frequencies of 2-30 Hz produced a minimal occipital driving response. No epileptiform discharges were seen. IMPRESSION: This EEG gives evidence of a severe widespread diffuse disturbance in cerebral function. At a sensitivity setting of 7 microvolts, very little brain activity is noted. At a sensitivity setting of 3 microvolts, there is low amplitude beta activity seen. These findings are consistent with a severe anoxic encephalopathy. Would recommend a follow-up EEG if clinically indicated. Clinical correlation is recommended. [facility]
[2017-03-08 12:07] LABS: Glucose,Whole Blood 245 mg/dL (75-99)
--- NOTE | 2017-03-08 15:56 | P.PN ---
Subjective 51 yr old with history of PE, Pumonary HTN is admitted to the hospital after pt sustained a CP arrest at Dr Lester's office while undergoing PFT's Pt apparently underwent resuscitation in the ambulance and required further resuscitation in the ER. Total downtime is estimated around 50-60 minutes Pt is currently on the ventilator Initial pH was 7.05 pt also required vasopressor support for a short duration of time Pt is currently on propofol NO purposeful movements are appreciated so far EKG reveals a RBBB no st elevations 03/07/17 ct scan of head showed multiple hypodensities off propofol pupils are non reactive no purposeful movements 03/08/2017 No change in clinical status Patient has been off propofol for the last 24 hours - Constitutional General appearance: obese - EENT Eyes: abnormal pupil 7mm, non reactive - Respiratory Respiratory: bilateral: diminished, negative: rales, rhonchi - Cardiovascular Rhythm: regular Abnormal Heart Sounds: no systolic murmur - Gastrointestinal General gastrointestinal: no normal bowel sounds, no organomegaly, soft - Neurologic No voluntary movements no painful reflexes DTR are equivocal on the ventilator no resp. Drive noted Objective - Vital Signs Vital signs: Vital Signs Temp 97.0 F L 03/08/17 12:00 Pulse 80 03/08/17 15:30 Resp 18 03/08/17 15:15 BP 116/74 03/08/17 15:15 Pulse Ox 93 L 03/08/17 15:15 Intake & Output 03/07/17 03/08/17 03/08/17 18:59 06:59 18:59 Intake Total 4152.707 6033.0 957.5 Output Total 1620 2860 2675 Balance -445.493 -1500 -1717.5 Weight 149 kg 152 kg Intake: IV 375.0 925.0 687.5 Piperacillin-Tazobactam 3 25.0 25.0 87.5 .375 gm In Dextrose/Water 1 50ml.bag @ 12.5 mls/hr IVPB Q8HR NILSA Rx#: [id number] Sodium Chloride 0.9% 1, 900 600 000 ml @ 75 mls/hr IV . [id number] NILSA Rx#:[id number] Sodium Chloride 0.9% 1, 350 000 ml @ 999 mls/hr IV . Q1H1M STA Rx#:[id number] Intake, IV Titration 779.507 75 50 Amount Esomeprazole 20 mg In 50 Sodium Chloride 0.9% 50 ml @ 100 mls/hr IVPB DAILY NILSA Rx#:[id number] Piperacillin-Tazobactam 3 37.5 .375 gm In Dextrose/Water 1 50ml.bag @ 12.5 mls/hr IVPB Q8HR NILSA Rx#: [id number] Propofol 1,000 mg In 100 292.007 ml @ 20 MCG/KG/MIN 18.507 mls/hr IV .Q5H25M NILSA Rx #:[id number] Sodium Chloride 0.9% 1, 450 75 000 ml @ 75 mls/hr IV . [id number] NILSA Rx#:[id number] Tube Feeding 20 270 190 Other 90 30 Output: Gastric Drainage 250 0 Urine 1370 2860 2675 Other: Voiding Method Indwelling Catheter Indwelling Catheter Indwelling Catheter - Labs CBC & Chem 7: 03/08/17 04:49 03/08/17 04:49 Labs: Abnormal Lab Results - Last 24 Hours (Table) 03/07/17 03/08/17 03/08/17 Range/Units 18:59 00:15 04:03 WBC (3.8-10.6) k/uL Plt Count (150-450) k/uL Neutrophils # (1.3-7.7) k/uL Lymphocytes # (1.0-4.8) k/uL ABG pCO2 (35-45) mmHg ABG pO2 (83-108) mmHg ABG Total CO2 (19-24) mmol/L Chloride (98-107) mmol/L Glucose (74-99) mg/dL POC Glucose (mg/dL) 233 H 258 H 225 H (75-99) mg/dL Magnesium (1.6-2.3) mg/dL 03/08/17 03/08/17 03/08/17 Range/Units 04:49 04:49 04:55 WBC 12.9 H (3.8-10.6) k/uL Plt Count 128 L (150-450) k/uL Neutrophils # 11.5 H (1.3-7.7) k/uL Lymphocytes # 0.8 L (1.0-4.8) k/uL ABG pCO2 46 H (35-45) mmHg ABG pO2 80 L (83-108) mmHg ABG Total CO2 26 H (19-24) mmol/L Chloride 112 H (98-107) mmol/L Glucose 241 H (74-99) mg/dL POC Glucose (mg/dL) (75-99) mg/dL Magnesium 2.6 H (1.6-2.3) mg/dL 03/08/17 03/08/17 Range/Units 08:18 12:03 WBC (3.8-10.6) k/uL Plt Count (150-450) k/uL Neutrophils # (1.3-7.7) k/uL Lymphocytes # (1.0-4.8) k/uL ABG pCO2 (35-45) mmHg ABG pO2 (83-108) mmHg ABG Total CO2 (19-24) mmol/L Chloride (98-107) mmol/L Glucose (74-99) mg/dL POC Glucose (mg/dL) 229 H 245 H (75-99) mg/dL Magnesium (1.6-2.3) mg/dL Microbiology - Last 24 Hours (Table) 03/07/17 05:26 Urine Culture - Final Urine,Catheterized 03/06/17 12:40 Gram Stain - Final Sputum Sputum Culture - Final Strep agalactiae - (group b) Assessment and Plan Plan: 51 yr s/p Cardiopulmonary arrest downtime in excess of 50 minutes Pulmonary HTN COPD History of PE Obesity Hyperkalemia Severe metabolic and respiratory acidosis MEME Acute hypoxic and hypercapnic respiratory failure Plan complete ICU supportive Had a long discussion with the patient's and family Prognosis appears to be extremely poor EEG sure severe anoxic injury Computed tomography scan shows multiple areas of anoxic injury
--- NOTE | 2017-03-08 16:00 | P.PN ---
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 EMS was called. He was found be pulseless at neck. ACLS protocol was started including an oral airway with bag valve mask and CPR. He remained pulseless, in emergency department, for details please refer to the code sheet however it appears that 20 minutes of ACLS protocol was done in the field and another 35 to 40 minutes in the emergency department. ACLS protocol was continued. After a period of time he did regain pulses. Patient did require oral tracheal intubation in the emergency department. Patient has a history of pneumonia pulmonary hypertension was diagnosed about a year ago at that time he was also on respirator at [facility] exact details are not available 03/07/17 Patient seen and evaluated exam and care plan discussed with the primary service as well as the present at bedside at length and nursing staff. Patient remains poorly responsive in deep comatose status GCS is 3, the pupils are fixed and dilated Babinski's are absent no plantar reflex is present no response to deep painful stimuli and remains on for respirator support current vent settings include assist control rate of 18 and tidal volume of 500 his breathing 18 5 of PEEP and 40% oxygen has been evaluated by neurology and cardiovascular services there is a highly likelihood of anoxic injury to the brain is present her culture results and reports are reviewed as well him a critical care time is 35 minutes 03/08/17-patient is seen and examined today on rounds. Patient remains in a comatose state, no neurological improvement at this time. Ventilator settings currently assist control mode with respiratory rate of 18, tidal volume of 500, FiO2 40% and a PEEP of 5. Sputum culture has come back positive for strep group B. Chest x-ray has been reviewed and shows cardiomegaly with more prominent left basilar atelectasis and/or infiltrate. Labs have been reviewed. Family at bedside and have been updated on patient's guarded prognosis as well as plan of care. Objective - Vital Signs Vital signs: Vital Signs Temp 97.0 F L 03/08/17 12:00 Pulse 80 03/08/17 15:30 Resp 18 03/08/17 15:15 BP 116/74 03/08/17 15:15 Pulse Ox 93 L 07/27/17 15:15 Intake & Output 03/07/17 03/08/17 03/08/17 18:59 06:59 18:59 Intake Total 4151.073 7256.0 957.5 Output Total 1620 2860 2675 Balance -445.493 -1500 -1717.5 Weight 149 kg 152 kg Intake: IV 375.0 925.0 687.5 Piperacillin-Tazobactam 3 25.0 25.0 87.5 .375 gm In Dextrose/Water 1 50ml.bag @ 12.5 mls/hr IVPB Q8HR NILSA Rx#: [id number] Sodium Chloride 0.9% 1, 900 600 000 ml @ 75 mls/hr IV . [id number] NILSA Rx#:[id number] Sodium Chloride 0.9% 1, 350 000 ml @ 999 mls/hr IV . Q1H1M STA Rx#:[id number] Intake, IV Titration 779.507 75 50 Amount Esomeprazole 20 mg In 50 Sodium Chloride 0.9% 50 ml @ 100 mls/hr IVPB DAILY NILSA Rx#:[id number] Piperacillin-Tazobactam 3 37.5 .375 gm In Dextrose/Water 1 50ml.bag @ 12.5 mls/hr IVPB Q8HR NILSA Rx#: [id number] Propofol 1,000 mg In 100 292.007 ml @ 20 MCG/KG/MIN 18.507 mls/hr IV .Q5H25M NILSA Rx #:[id number] Sodium Chloride 0.9% 1, 450 75 000 ml @ 75 mls/hr IV . [id number] NILSA Rx#:[id number] Tube Feeding 20 270 190 Other 90 30 Output: Gastric Drainage 250 0 Urine 1370 2860 2675 Other: Voiding Method Indwelling Catheter Indwelling Catheter Indwelling Catheter - Exam GENERAL EXAM: On mechanical ventilation HEAD: Normocephalic. EYES: Pupils fixed and dilated NOSE: Clear with pink turbinates. THROAT: Mechanical airway in place NECK: No masses, no JVD. CHEST: No chest wall deformity. LUNGS: Equal air entry with faint diffuse inspiratory and expiratory wheezing. CVS: S1 and S2 normal with no audible mumurs, regular rhythm. ABDOMEN: No hepatosplenomegaly, normal bowel sounds, no guarding or rigidity. EXTREMITIES: Trace edema noted, pedal pulses palpable. SKIN: No rashes CENTRAL NERVOUS SYSTEM: Nonverbal and noncommunicative unresponsive to pain or verbal's stimuli - Labs CBC & Chem 7: 03/08/17 04:49 03/08/17 04:49 Labs: Abnormal Lab Results - Last 24 Hours (Table) 03/07/17 03/08/17 03/08/17 Range/Units 18:59 00:15 04:03 WBC (3.8-10.6) k/uL Plt Count (150-450) k/uL Neutrophils # (1.3-7.7) k/uL Lymphocytes # (1.0-4.8) k/uL ABG pCO2 (35-45) mmHg ABG pO2 (83-108) mmHg ABG Total CO2 (19-24) mmol/L Chloride (98-107) mmol/L Glucose (74-99) mg/dL POC Glucose (mg/dL) 233 H 258 H 225 H (75-99) mg/dL Magnesium (1.6-2.3) mg/dL 03/08/17 03/08/17 03/08/17 Range/Units 04:49 04:49 04:55 WBC 12.9 H (3.8-10.6) k/uL Plt Count 128 L (150-450) k/uL Neutrophils # 11.5 H (1.3-7.7) k/uL Lymphocytes # 0.8 L (1.0-4.8) k/uL ABG pCO2 46 H (35-45) mmHg ABG pO2 80 L (83-108) mmHg ABG Total CO2 26 H (19-24) mmol/L Chloride 112 H (98-107) mmol/L Glucose 241 H (74-99) mg/dL POC Glucose (mg/dL) (75-99) mg/dL Magnesium 2.6 H (1.6-2.3) mg/dL 03/08/17 03/08/17 Range/Units 08:18 12:03 WBC (3.8-10.6) k/uL Plt Count (150-450) k/uL Neutrophils # (1.3-7.7) k/uL Lymphocytes # (1.0-4.8) k/uL ABG pCO2 (35-45) mmHg ABG pO2 (83-108) mmHg ABG Total CO2 (19-24) mmol/L Chloride (98-107) mmol/L Glucose (74-99) mg/dL POC Glucose (mg/dL) 229 H 245 H (75-99) mg/dL Magnesium (1.6-2.3) mg/dL Microbiology - Last 24 Hours (Table) 03/07/17 05:26 Urine Culture - Final Urine,Catheterized 03/06/17 12:40 Gram Stain - Final Sputum Sputum Culture - Final Strep agalactiae - (group b) Assessment and Plan Plan: Impression #1 status post cardiopulmonary arrest #2 CV a profound metabolic acidosis related to above #3 severe morbid obesity obstructive sleep apnea and pulmonary hypertension #4 prior history of pulmonary embolism a year ago has been on XerALTO regularly #5 suspected anoxic injury to the brain #6 aspiration pneumonia likely left lower lobe Plan Supportive care with adjustment of respirator, fluid resuscitation and support, recommendations were made for central line and A-line however family has declined, patient is being started on broad-spectrum antibiotics propofol is being given for comfort and better control on respirator, we'll closely monitor the urine output and mental status, neurology consultation has been initiated overall prognosis guarded Medications have been reviewed and will be continued as ordered. Continue with pulmonary hygiene, coughing and deep breathing exercises, and supportive care. Supplemental oxygen to maintain oxygen saturations of 92% or better. Continue nebulizer treatments. GI and DVT prophylaxis. We will continue to monitor labs/results and adjust treatment as necessary. Further recommendations pending. I performed an examination of the patient and discussed their management with the nurse practitioner. I have reviewed the nurse practitioner's note and agree with the documented findings and plan of care.
[2017-03-08 17:25] LABS: Glucose,Whole Blood 268 mg/dL (75-99)
[2017-03-08] MEDS ORDERED: INSULIN REGULAR BOLUS (FROM DRIP BAG) IV PRN (17:34)
[2017-03-08] MEDS: RIVAROXABAN 10 MG TAB PO SCH (17:48)
[2017-03-08 20:23] LABS: Glucose,Whole Blood 304 mg/dL (75-99)
[2017-03-08] MEDS: INSULIN REGULAR 100 UNIT in SODIUM CHLORIDE 0.9% 100 ML IV SCH (20:23)
[2017-03-08 21:12] LABS: Glucose,Whole Blood 265 mg/dL (75-99)
[2017-03-08] MEDS: DEXAMETHASONE SOD PHOSPHATE 10 MG/ML 1 ML VIAL IV SCH (21:28)
[2017-03-08 21:57] LABS: Anion Gap 8 mmol/L; Blood Urea Nitrogen 17 mg/dL (9-20); Calcium 9.5 mg/dL (8.4-10.2); Carbon Dioxide 27 mmol/L (22-30); Glucose 278 mg/dL (74-99); Non-African American GFR(MDRD) 59 (>60 ml/min/1.73 sqM); Phosphorous 1.4 mg/dL (2.5-4.5)
[2017-03-08 22:03] LABS: CH 30.6; CHCM 32.4; HCT 51.3 % (39.0-53.0); HGB 16.1 gm/dL (13.0-17.5); MCH 29.8 pg (25.0-35.0); MCHC 31.4 g/dL (31.0-37.0); MCV 94.9 fL (80.0-100.0); Mean Platelet Volume 8.7; RBC 5.41 m/uL (4.30-5.90); WBC 11.1 k/uL (3.8-10.6)
[2017-03-08 22:06] LABS: Chloride 126 mmol/L (98-107); Potassium 2.1 mmol/L (3.5-5.1); Sodium 161 mmol/L (137-145)
[2017-03-08 22:06] LABS: Glucose,Whole Blood 236 mg/dL (75-99)
--- NOTE | 2017-03-08 22:08 | P.PN ---
Subjective This patient is a 51-year-old male who suffered an acute cardiac arrest and is currently intubated on the ventilator in the intensive care unit. He underwent a routine EEG yesterday for further assessment of his severe anoxic encephalopathy. EEG is severely slow and consistent with severe anoxic encephalopathy to the brain following cardiac arrest. His neurological examination is unchanged from yesterday. Patient's was at bedside. She was updated on the results of the repeat computed tomography scan of the brain which continues to show evidence of severe anoxic encephalopathy. We have reviewed his neurological exam findings and the ICU which revealed him to have absent brainstem reflexes. These findings are all suggesting a very poor prognosis with the patient. would like to continue supportive care for the patient and give him close monitoring in the ICU. We would agree with this as this is her personal wish. She is aware of his very poor prognosis. Patient 's neurological examination is unchanged from yesterday. We will plan to get a follow-up EEG tomorrow for comparison to the initial study. We will continue close neurological follow-up of this patient in the ICU. As noted case was discussed with the patient's who was at bedside. All of her questions were answered. She is aware of his very guarded condition. Objective - Vital Signs Vital signs: Vital Signs Temp 97.0 F L 03/08/17 12:00 Pulse 80 03/08/17 15:30 Resp 18 03/08/17 15:15 BP 116/74 03/08/17 15:15 Pulse Ox 93 L 03/08/17 15:15 Intake & Output 03/07/17 03/08/17 03/08/17 18:59 06:59 18:59 Intake Total 8395.094 3805.0 957.5 Output Total 1620 2860 2675 Balance -445.493 -1500 -1717.5 Weight 149 kg 152 kg Intake: IV 375.0 925.0 687.5 Piperacillin-Tazobactam 3 25.0 25.0 87.5 .375 gm In Dextrose/Water 1 50ml.bag @ 12.5 mls/hr IVPB Q8HR [facility] Rx#: [id number] Sodium Chloride 0.9% 1, 900 600 000 ml @ 75 mls/hr IV . [id number] [facility] Rx#:[id number] Sodium Chloride 0.9% 1, 350 000 ml @ 999 mls/hr IV . Q1H1M [facility] Rx#:[id number] Intake, IV Titration 779.507 75 50 Amount Esomeprazole 20 mg In 50 Sodium Chloride 0.9% 50 ml @ 100 mls/hr IVPB DAILY [facility] Rx#:[id number] Piperacillin-Tazobactam 3 37.5 .375 gm In Dextrose/Water 1 50ml.bag @ 12.5 mls/hr IVPB Q8HR [facility] Rx#: [id number] Propofol 1,000 mg In 100 292.007 ml @ 20 MCG/KG/MIN 18.507 mls/hr IV .Q5H25M [facility] Rx #:[id number] Sodium Chloride 0.9% 1, 450 75 000 ml @ 75 mls/hr IV . [id number] [facility] Rx#:[id number] Tube Feeding 20 270 190 Other 90 30 Output: Gastric Drainage 250 0 Urine 1370 2860 2675 Other: Voiding Method Indwelling Catheter Indwelling Catheter Indwelling Catheter - Exam Physical examination: PHYSICAL EXAMINATION: Patient is resting comfortably in bed. Patient has no brainstem reflexes. He remains comatose. VITAL SIGNS: Blood pressure is [114/75]. Heart rate is [102]. Respiration is [18 ]. Temperature is [97.0]. HEENT: Head is atraumatic, neck is supple, there were no carotid bruits. CHEST: Lungs are clear to auscultation and percussion. CARDIAC: S1, S2 normal rate and rhythm. There is no murmur. ABDOMEN: Soft and nontender. Bowel sounds are present. EXTREMITIES: There is no pedal edema. Peripheral pulses are present. Neurological examination: Patient's neurological examination is unchanged from yesterday. Patient remains comatose. He has no brainstem reflexes. - Labs CBC & Chem 7: 03/08/17 04:49 03/08/17 21:27 Labs: Abnormal Lab Results - Last 24 Hours (Table) 03/07/17 03/08/17 03/08/17 Range/Units 18:59 00:15 04:03 WBC (3.8-10.6) k/uL Plt Count (150-450) k/uL Neutrophils # (1.3-7.7) k/uL Lymphocytes # (1.0-4.8) k/uL ABG pCO2 (35-45) mmHg ABG pO2 (83-108) mmHg ABG Total CO2 (19-24) mmol/L Chloride (98-107) mmol/L Glucose (74-99) mg/dL POC Glucose (mg/dL) 233 H 258 H 225 H (75-99) mg/dL Magnesium (1.6-2.3) mg/dL 03/08/17 03/08/17 03/08/17 Range/Units 04:49 04:49 04:55 WBC 12.9 H (3.8-10.6) k/uL Plt Count 128 L (150-450) k/uL Neutrophils # 11.5 H (1.3-7.7) k/uL Lymphocytes # 0.8 L (1.0-4.8) k/uL ABG pCO2 46 H (35-45) mmHg ABG pO2 80 L (83-108) mmHg ABG Total CO2 26 H (19-24) mmol/L Chloride 112 H (98-107) mmol/L Glucose 241 H (74-99) mg/dL POC Glucose (mg/dL) (75-99) mg/dL Magnesium 2.6 H (1.6-2.3) mg/dL 03/08/17 03/08/17 Range/Units 08:18 12:03 WBC (3.8-10.6) k/uL Plt Count (150-450) k/uL Neutrophils # (1.3-7.7) k/uL Lymphocytes # (1.0-4.8) k/uL ABG pCO2 (35-45) mmHg ABG pO2 (83-108) mmHg ABG Total CO2 (19-24) mmol/L Chloride (98-107) mmol/L Glucose (74-99) mg/dL POC Glucose (mg/dL) 229 H 245 H (75-99) mg/dL Magnesium (1.6-2.3) mg/dL Microbiology - Last 24 Hours (Table) 03/07/17 05:26 Urine Culture - Final Urine,Catheterized 03/06/17 12:40 Gram Stain - Final Sputum Sputum Culture - Final Strep agalactiae - (group b) Assessment and Plan (1) Anoxic-ischemic encephalopathy Status: Acute Code(s): G93.1 - ANOXIC BRAIN DAMAGE, NOT ELSEWHERE CLASSIFIED; I67.82 - CEREBRAL ISCHEMIA (2) Cardiopulmonary arrest Status: Acute Code(s): I46.9 - CARDIAC ARREST, CAUSE UNSPECIFIED (3) Cor pulmonale Status: Acute Code(s): I27.81 - COR PULMONALE (CHRONIC) (4) PEA (Pulseless electrical activity) Status: Acute Code(s): I46.9 - CARDIAC ARREST, CAUSE UNSPECIFIED Plan: This patient is a 51-year-old right-handed white male who 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 Patient was undergoing pulmonary function studies including pulmonary stress test. Apparently he became stiff acutely short of breath and collapsed and went into full cardiac arrest. CPR was immediately started and EMS was called to the scene. He had a downtime estimated to be close to 50 minutes in duration. He was brought into the emergency room where he was intubated and transferred to the intensive care unit. We did order a stat computed tomography scan of the brain which revealed findings consistent with a anoxic encephalopathy. He was examined in the intensive care unit and his neurological examination reveals absence of brainstem reflexes. He does not withdraw to painful stimuli. We have recommended a repeat computed tomography scan of the brain to be done tomorrow for follow-up. We will also obtain an EEG. The case was discussed at length with the patient's who was at bedside. We did review the results of the repeat computed tomography scan of the brain that was done today. This CAT scan reveals evidence of a anoxic encephalopathy. He also reviewed the results of his EEG that was done today which is consistent with a very severe encephalopathy secondary to anoxia. All of these results were discussed today with the patient's who was admitted bedside. She is aware of his very poor prognosis. She would like to continue supportive care for the patient at this time. She was updated on all of his current test results and neurological exam findings. We will plan to get a follow-up EEG tomorrow for comparison to the first study. His current neurological status is one of severe coma following cardiac arrest. He does not demonstrate brainstem reflexes and his overall prognosis at this time remains very poor. We will continue all supportive care for this patient at this time. was once again updated on his neurological status at length today in the ICU at bedside. His overall prognosis at this time remains very guarded. We will continue to follow his neurological status closely in the ICU setting. He will be reevaluated tomorrow after his EEG is completed. As noted his overall prognosis at this time remains very guarded.
[2017-03-08] MEDS ORDERED: POTASSIUM CHLORIDE ORAL LIQUID 40 MEQ/30 ML CUP NG-TUBE SCH (23:00)
[2017-03-08 23:04] LABS: Glucose,Whole Blood 212 mg/dL (75-99)
[2017-03-08] MEDS: DEXTROSE 5%-0.45% NACL 1,000 ML IV SCH (23:06)
[2017-03-09] MEDS: POTASSIUM PHOSPHATE 10 MMOL in SODIUM CHLORIDE 0.9% 250 ML IV SCH ×3 (00:14→05:25)
[2017-03-09 00:16] LABS: Glucose,Whole Blood 219 mg/dL (75-99)
[2017-03-09 01:05] LABS: Glucose,Whole Blood 227 mg/dL (75-99)
[2017-03-09 01:59] LABS: Glucose,Whole Blood 236 mg/dL (75-99)
[2017-03-09 03:16] LABS: Glucose,Whole Blood 216 mg/dL (75-99)
[2017-03-09 04:00] LABS: Glucose,Whole Blood 218 mg/dL (75-99)
[2017-03-09] MEDS: DEXAMETHASONE SOD PHOSPHATE 10 MG/ML 1 ML VIAL IV SCH ×7 (04:00→23:01)
[2017-03-09] MEDS: INSULIN REGULAR 100 UNIT in SODIUM CHLORIDE 0.9% 100 ML IV SCH ×4 (04:08→22:54)
[2017-03-09 05:02] LABS: Glucose,Whole Blood 212 mg/dL (75-99)
[2017-03-09 05:12] LABS: Basophils % (A) 0 %; CH 30.1; CHCM 32.1; Eosinophils # (A) 0.1 k/uL (0-0.7); Eosinophils % (A) 1 %; HCT 48.3 % (39.0-53.0); HDW 3.03; HGB 15.8 gm/dL (13.0-17.5); Hypochromasia Slight; Luc % (Auto) 1; Lymphocytes # (A) 0.8 k/uL (1.0-4.8); Lymphocytes % (A) 6 %; MCH 30.8 pg (25.0-35.0); MCHC 32.8 g/dL (31.0-37.0); MCV 94.1 fL (80.0-100.0); Mean Platelet Volume 8.6; Monocytes # (A) 0.6 k/uL (0-1.0); Monocytes % (A) 5 %; Neutrophils # (A) 10.2 k/uL (1.3-7.7); Neutrophils % (A) 87 %; RBC 5.13 m/uL (4.30-5.90); RDW 14.6 % (11.5-15.5); WBC 11.8 k/uL (3.8-10.6); WBC (Perox) 11.51
[2017-03-09 05:35] LABS: Calcium 9.2 mg/dL (8.4-10.2); Magnesium 3.1 mg/dL (1.6-2.3); Potassium 3.5 mmol/L (3.5-5.1)
[2017-03-09 06:14] LABS: Glucose,Whole Blood 204 mg/dL (75-99)
--- NOTE | 2017-03-09 06:46 | PN ---
DATE OF SERVICE: 03/08/2017 The patient is a 51-year-old obese male who is on a mechanical ventilator is seen in the ICU with the nurse and the family at bedside. The patient is comatose, status post cardiac arrest. PHYSICAL EXAM: VITAL SIGNS: Temp is 97.0, heart rate 82, respiratory rate 18, blood pressure 107/68, O2 sats 92% on mechanical ventilator with an FiO2 of 40%. HEENT: Head is normocephalic, atraumatic. Neck is supple. Trachea is midline. LUNGS: With scattered wheeze and prolonged expiratory phase. HEART: S1 and S2 are heard. No tachycardiac. ABDOMEN: Soft, obese. EXTREMITIES: With trace edema bilaterally. NEUROLOGIC: Patient remains comatose. According to the patient's , neurology thinks they may have seen some brain activity on the last EEG and that will be repeated tomorrow. LABS: White count is 12.9, hemoglobin is 15.9, hematocrit is 49.1 with 128,000 platelets. Blood gases, pH 7.36, pCO2 of 46, pO2 of 80, bicarb 25, total CO2 is 26. Sodium is 145, potassium is 4.2, chloride is 112, CO2 is 23, anion gap is 10. BUN is 16, creatinine is 1.10. Glucose is 241. Calcium is 8.7. Phosphorus is 2.9. Magnesium is 2.6. IMAGING: Chest x-ray shows cardiomegaly with more prominent left basilar atelectasis and/or infiltrate noted. IMPRESSION: 1. Status post cardiac arrest. 2. Anoxic encephalopathy. 3. Possible irreversible brain damage. 4. Severe chronic obstructive pulmonary disease with history of pulmonary embolism. 5. Cardiomyopathy. PLAN: Continue current medications, which have been reviewed. Continue bronchodilators and aerosol steroids. Continue with GI and DVT prophylaxis. Continue with supportive care. Patient's family is at the bedside and understand that the patient's prognosis is guarded and will follow closely with neurology for final neurological recommendations. Will continue to follow patient closely making further changes as necessary. [facility]
[2017-03-09 07:07] LABS: Glucose,Whole Blood 201 mg/dL (75-99)
--- NOTE | 2017-03-09 07:44 | XR ---
EXAMINATION TYPE: XR chest 1V portable DATE OF EXAM: 03/09/2017 HISTORY: Tube placement. REFERENCE: Previous study dated 03/08/2017. FINDINGS: The patient is ET tube and NG tube remain in place, unchanged in appearance. Heart size is upper limits of normal. There is left basilar airspace disease. There is a small effusi on on the left. Overall the appearance of the chest is not significantly changed from previous. IMPRESSION: NO INTERVAL CHANGE IN APPEARANCE OF THE CHEST.
[2017-03-09] MEDS: IPRATROPIUM-ALBUTEROL 3 ML NEB INHALATION SCH ×4 (07:49→20:41)
[2017-03-09] MEDS: BUDESONIDE 0.5 MG/2 ML NEBU INHALATION SCH ×2 (07:49→20:41)
[2017-03-09 08:02] LABS: Glucose,Whole Blood 165 mg/dL (75-99)
[2017-03-09] MEDS: PIPERACILLIN-TAZOBACTAM 3.375 GM in DEXTROSE/WATER 1 50ML.BAG IVPB SCH ×4 (08:26→23:01)
[2017-03-09 09:23] LABS: Glucose,Whole Blood 141 mg/dL (75-99)
[2017-03-09] MEDS ORDERED: DESMOPRESSIN INJ 4 MCG/ML AMP SQ ONE (09:50)
[2017-03-09] MEDS: CHLORHEXIDINE GLUCONATE 15 ML CUP MUCOUS MEM SCH ×2 (09:52→20:45)
[2017-03-09] MEDS: DEXTROSE 5%-0.45% NACL 1,000 ML IV SCH (09:52)
[2017-03-09] MEDS: ESOMEPRAZOLE 20 MG in SODIUM CHLORIDE 0.9% 50 ML IVPB SCH (09:53)
[2017-03-09] MEDS ORDERED: DEXTROSE 5%-0.45% NACL 1,000 ML IV SCH (09:56)
[2017-03-09 10:19] LABS: Potassium 3.3 mmol/L (3.5-5.1)
[2017-03-09 10:22] VITALS: BMI 46.9
[2017-03-09 10:23] LABS: Glucose,Whole Blood 130 mg/dL (75-99)
[2017-03-09] MEDS ORDERED: DESMOPRESSIN ACETATE 4 MCG/ML VIAL (MDV) SQ ONE (11:00)
[2017-03-09] MEDS: POTASSIUM CHLORIDE 10 MEQ in WATER FOR INJECTION 1 100ML.BAG IVPB SCH ×2 (11:05→11:56)
[2017-03-09 11:11] LABS: Glucose,Whole Blood 169 mg/dL (75-99)
[2017-03-09 12:22] LABS: Glucose,Whole Blood 189 mg/dL (75-99)
[2017-03-09 13:14] LABS: Glucose,Whole Blood 176 mg/dL (75-99)
--- NOTE | 2017-03-09 13:36 | PN ---
DATE OF SERVICE: 03/09/2017 Patient is a 51-year-old male who is seen in the ICU with nursing at bedside. Patient is lying in bed and remains on mechanical ventilator. He is comatose and does not respond to verbal or noxious stimuli. Patient's pupils remain dilated and do not react to light. Neurology is following patient and an EEG was repeated this morning with the results pending. PHYSICAL EXAM: GENERAL: Patient is comatose. VITAL SIGNS: Temp is 98.2, heart rate is 80, respiratory rate is 17, blood pressure is 98/58, O2 sat is 92% on mechanical ventilator with an FiO2 at 40%. HEENT: Head is normocephalic, atraumatic, neck is supple. Lung with diffuse wheeze. HEART: S1, S2 are heard, not tachycardic. ABDOMEN: Soft, obese, bowel sounds are hypoactive. Extremities with trace edema. NEUROLOGIC: Patient remains nonresponsive in a comatose state. LABS: White count is 11.8, hemoglobin is 15.8, hematocrit is 48.3 with 128,000 platelets. Sodium is 166, potassium is 3.5, chloride is 130, CO2 is 26, anion gap is 10, BUN is 20, creatinine is 1.5, glucose is 230, calcium is 9.25 versus 3.0, magnesium is 3.1. On imaging, a chest x-ray done this a.m. shows no interval change in appearance of the chest with a small effusion on the left and left basilar air space disease. No new imaging to review. An EEG done this a.m. is pending. IMPRESSION: 1. Status post cardiac arrest. 2. Anoxic encephalopathy. 3. Hypernatremia. 4. Possible irreversible brain damage. 5. Severe chronic obstructive pulmonary disease with history of PE. 6. Cardiomyopathy. PLAN: 1. Continue current meds which have been reviewed with bronchodilators and aerosolized steroids. 2. Continue with GI and DVT prophylaxis. I did speak with the patient's and supportive care was provided with emotional support as well as family tries to work through patient's grim prognosis. Will follow with Neurology and await their final recommendations and follow patient closely with you making further changes as necessary. [facility]
--- NOTE | 2017-03-09 13:56 | P.PN ---
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 EMS was called. He was found be pulseless at neck. ACLS protocol was started including an oral airway with bag valve mask and CPR. He remained pulseless, in emergency department, for details please refer to the code sheet however it appears that 20 minutes of ACLS protocol was done in the field and another 35 to 40 minutes in the emergency department. ACLS protocol was continued. After a period of time he did regain pulses. Patient did require oral tracheal intubation in the emergency department. Patient has a history of pneumonia pulmonary hypertension was diagnosed about a year ago at that time he was also on respirator at [facility] exact details are not available 03/07/17 Patient seen and evaluated exam and care plan discussed with the primary service as well as the present at bedside at length and nursing staff. Patient remains poorly responsive in deep comatose status GCS is 3, the pupils are fixed and dilated Babinski's are absent no plantar reflex is present no response to deep painful stimuli and remains on for respirator support current vent settings include assist control rate of 18 and tidal volume of 500 his breathing 18 5 of PEEP and 40% oxygen has been evaluated by neurology and cardiovascular services there is a highly likelihood of anoxic injury to the brain is present her culture results and reports are reviewed as well him a critical care time is 35 minutes 03/08/17-patient is seen and examined today on rounds. Patient remains in a comatose state, no neurological improvement at this time. Ventilator settings currently assist control mode with respiratory rate of 18, tidal volume of 500, FiO2 40% and a PEEP of 5. Sputum culture has come back positive for strep group B. Chest x-ray has been reviewed and shows cardiomegaly with more prominent left basilar atelectasis and/or infiltrate. Labs have been reviewed. Family at bedside and have been updated on patient's guarded prognosis as well as plan of care. 03/09/17-is being seen in evaluated and examined today on rounds in the intensive care unit. The patient did have a sodium of 166 this morning as well as chloride level of 130. We will add nephrology on in regards to diabetes insipidus. Patient did receive repeat EEG this morning those results are currently pending. Patient remains on mechanical ventilation he does not respond to verbal or noxious stimuli. His pupils remain dilated and do not react to light. Patient is essentially unchanged. Prognosis continues to remain poor. Currently we will wait for recommendations from neurology. Objective - Vital Signs Vital signs: Vital Signs Temp 97.8 F 03/09/17 12:00 Pulse 77 03/09/17 12:30 Resp 18 03/09/17 12:30 BP 104/62 03/09/17 12:30 Pulse Ox 93 L 03/09/17 12:30 Intake & Output 03/08/17 03/09/17 03/09/17 18:59 06:59 18:59 Intake Total 1205.0 9758.320 6914.387 Output Total 3525 2080 870 Balance -2320.0 -84.349 541.387 Weight 152.7 kg 152.7 kg Intake: IV 925.0 1537.5 1125.0 Dextrose 5%-0.45% NaCl 1, 700 400 000 ml @ 100 mls/hr IV . Q10H [facility] Rx#:[id number] Dextrose 5%-0.45% NaCl 1, 250 000 ml @ 125 mls/hr IV . Q8H [facility] Rx#:[id number] Esomeprazole 20 mg In 50 Sodium Chloride 0.9% 50 ml @ 100 mls/hr IVPB DAILY [facility] Rx#:[id number] Piperacillin-Tazobactam 3 100.0 87.5 50.0 .375 gm In Dextrose/Water 1 50ml.bag @ 12.5 mls/hr IVPB Q8HR [facility] Rx#: [id number] Potassium Phosphate 10 375 375 mmol In Sodium Chloride 0 .9% 250 ml @ 125 mls/hr IV Q2H [facility] Rx#:[id number] Sodium Chloride 0.9% 1, 825 375 000 ml @ 75 mls/hr IV . [id number] [facility] Rx#:[id number] Intake, IV Titration 50 128.151 106.387 Amount Esomeprazole 20 mg In 50 Sodium Chloride 0.9% 50 ml @ 100 mls/hr IVPB DAILY [facility] Rx#:[id number] Insulin Regular 100 unit 128.151 106.387 In Sodium Chloride 0.9% 100 ml @ Per Protocol IV .Q0M [facility] Rx#:[id number] Tube Feeding 200 240 120 Other 30 90 60 Output: Gastric Drainage 0 Urine 3525 2080 870 Other: Voiding Method Indwelling Catheter Indwelling Catheter - Exam GENERAL EXAM: On mechanical ventilation HEAD: Normocephalic. EYES: Pupils fixed and dilated NOSE: Clear with pink turbinates. THROAT: Mechanical airway in place NECK: No masses, no JVD. CHEST: No chest wall deformity. LUNGS: Equal air entry with faint diffuse inspiratory and expiratory wheezing. CVS: S1 and S2 normal with no audible mumurs, regular rhythm. ABDOMEN: No hepatosplenomegaly, normal bowel sounds, no guarding or rigidity. EXTREMITIES: Trace edema noted, pedal pulses palpable. SKIN: No rashes CENTRAL NERVOUS SYSTEM: Nonverbal and noncommunicative unresponsive to pain or verbal's stimuli - Labs CBC & Chem 7: 03/09/17 04:55 03/09/17 09:52 Labs: Abnormal Lab Results - Last 24 Hours (Table) 03/08/17 03/08/17 03/08/17 Range/Units 17:23 20:22 21:11 WBC (3.8-10.6) k/uL Plt Count (150-450) k/uL Neutrophils # (1.3-7.7) k/uL Lymphocytes # (1.0-4.8) k/uL Sodium (137-145) mmol/L Potassium (3.5-5.1) mmol/L Chloride (98-107) mmol/L Creatinine (0.66-1.25) mg/dL Glucose (74-99) mg/dL POC Glucose (mg/dL) 268 H 304 H 265 H (75-99) mg/dL Osmolality (280-301) mosm/kg Phosphorus (2.5-4.5) mg/dL Magnesium (1.6-2.3) mg/dL Ur Random Sodium (30-90) mmol/L 03/08/17 03/08/17 03/08/17 Range/Units 21:27 21:27 22:04 WBC 11.1 H (3.8-10.6) k/uL Plt Count 115 L (150-450) k/uL Neutrophils # (1.3-7.7) k/uL Lymphocytes # (1.0-4.8) k/uL Sodium 161 H* (137-145) mmol/L Potassium 2.1 L* (3.5-5.1) mmol/L Chloride 126 H* (98-107) mmol/L Creatinine 1.29 H (0.66-1.25) mg/dL Glucose 278 H (74-99) mg/dL POC Glucose (mg/dL) 236 H (75-99) mg/dL Osmolality (280-301) mosm/kg Phosphorus 1.4 L (2.5-4.5) mg/dL Magnesium 3.0 H (1.6-2.3) mg/dL Ur Random Sodium (30-90) mmol/L 03/08/17 03/09/17 03/09/17 Range/Units 23:03 00:13 01:03 WBC (3.8-10.6) k/uL Plt Count (150-450) k/uL Neutrophils # (1.3-7.7) k/uL Lymphocytes # (1.0-4.8) k/uL Sodium (137-145) mmol/L Potassium (3.5-5.1) mmol/L Chloride (98-107) mmol/L Creatinine (0.66-1.25) mg/dL Glucose (74-99) mg/dL POC Glucose (mg/dL) 212 H 219 H 227 H (75-99) mg/dL Osmolality (280-301) mosm/kg Phosphorus (2.5-4.5) mg/dL Magnesium (1.6-2.3) mg/dL Ur Random Sodium (30-90) mmol/L 03/09/17 03/09/17 03/09/17 Range/Units 01:56 03:14 03:57 WBC (3.8-10.6) k/uL Plt Count (150-450) k/uL Neutrophils # (1.3-7.7) k/uL Lymphocytes # (1.0-4.8) k/uL Sodium (137-145) mmol/L Potassium (3.5-5.1) mmol/L Chloride (98-107) mmol/L Creatinine (0.66-1.25) mg/dL Glucose (74-99) mg/dL POC Glucose (mg/dL) 236 H 216 H 218 H (75-99) mg/dL Osmolality (280-301) mosm/kg Phosphorus (2.5-4.5) mg/dL Magnesium (1.6-2.3) mg/dL Ur Random Sodium (30-90) mmol/L 03/09/17 03/09/17 03/09/17 Range/Units 04:55 04:55 05:00 WBC 11.8 H (3.8-10.6) k/uL Plt Count 128 L (150-450) k/uL Neutrophils # 10.2 H (1.3-7.7) k/uL Lymphocytes # 0.8 L (1.0-4.8) k/uL Sodium 166 H* (137-145) mmol/L Potassium (3.5-5.1) mmol/L Chloride 130 H* (98-107) mmol/L Creatinine 1.50 H (0.66-1.25) mg/dL Glucose 230 H (74-99) mg/dL POC Glucose (mg/dL) 212 H (75-99) mg/dL Osmolality (280-301) mosm/kg Phosphorus (2.5-4.5) mg/dL Magnesium 3.1 H (1.6-2.3) mg/dL Ur Random Sodium (30-90) mmol/L 03/09/17 03/09/17 03/09/17 Range/Units 06:12 07:05 07:59 WBC (3.8-10.6) k/uL Plt Count (150-450) k/uL Neutrophils # (1.3-7.7) k/uL Lymphocytes # (1.0-4.8) k/uL Sodium (137-145) mmol/L Potassium (3.5-5.1) mmol/L Chloride (98-107) mmol/L Creatinine (0.66-1.25) mg/dL Glucose (74-99) mg/dL POC Glucose (mg/dL) 204 H 201 H 165 H (75-99) mg/dL Osmolality (280-301) mosm/kg Phosphorus (2.5-4.5) mg/dL Magnesium (1.6-2.3) mg/dL Ur Random Sodium (30-90) mmol/L 03/09/17 03/09/17 03/09/17 Range/Units 09:21 09:48 09:52 WBC (3.8-10.6) k/uL Plt Count (150-450) k/uL Neutrophils # (1.3-7.7) k/uL Lymphocytes # (1.0-4.8) k/uL Sodium (137-145) mmol/L Potassium 3.3 L (3.5-5.1) mmol/L Chloride (98-107) mmol/L Creatinine (0.66-1.25) mg/dL Glucose (74-99) mg/dL POC Glucose (mg/dL) 141 H (75-99) mg/dL Osmolality 347 H* (280-301) mosm/kg Phosphorus (2.5-4.5) mg/dL Magnesium (1.6-2.3) mg/dL Ur Random Sodium <5 L (30-90) mmol/L 03/09/17 03/09/17 03/09/17 Range/Units 10:21 11:09 12:20 WBC (3.8-10.6) k/uL Plt Count (150-450) k/uL Neutrophils # (1.3-7.7) k/uL Lymphocytes # (1.0-4.8) k/uL Sodium (137-145) mmol/L Potassium (3.5-5.1) mmol/L Chloride (98-107) mmol/L Creatinine (0.66-1.25) mg/dL Glucose (74-99) mg/dL POC Glucose (mg/dL) 130 H 169 H 189 H (75-99) mg/dL Osmolality (280-301) mosm/kg Phosphorus (2.5-4.5) mg/dL Magnesium (1.6-2.3) mg/dL Ur Random Sodium (30-90) mmol/L 03/09/17 Range/Units 13:12 WBC (3.8-10.6) k/uL Plt Count (150-450) k/uL Neutrophils # (1.3-7.7) k/uL Lymphocytes # (1.0-4.8) k/uL Sodium (137-145) mmol/L Potassium (3.5-5.1) mmol/L Chloride (98-107) mmol/L Creatinine (0.66-1.25) mg/dL Glucose (74-99) mg/dL POC Glucose (mg/dL) 176 H (75-99) mg/dL Osmolality (280-301) mosm/kg Phosphorus (2.5-4.5) mg/dL Magnesium (1.6-2.3) mg/dL Ur Random Sodium (30-90) mmol/L Microbiology - Last 24 Hours (Table) 03/07/17 05:26 Urine Culture - Final Urine,Catheterized Assessment and Plan Plan: Impression #1 status post cardiopulmonary arrest #2 CV a profound metabolic acidosis related to above #3 severe morbid obesity obstructive sleep apnea and pulmonary hypertension #4 prior history of pulmonary embolism a year ago has been on XerALTO regularly #5 suspected anoxic injury to the brain #6 aspiration pneumonia likely left lower lobe Plan Patient continues to have no change in his condition, he remains to have a poor prognosis. However the patient family would still like taken continue with supportive care at this time and await neurology's final recommendations. Supportive care with adjustment of respirator, fluid resuscitation and support, recommendations were made for central line and A-line however family has declined, patient is being started on broad-spectrum antibiotics. The propofol is off. we'll closely monitor the urine output and mental status, neurology consultation has been initiated overall prognosis guarded. Nephrology has also been consulted for diabetes insipidus. Medications have been reviewed and will be continued as ordered. Continue with pulmonary hygiene, coughing and deep breathing exercises, and supportive care. Supplemental oxygen to maintain oxygen saturations of 92% or better. Continue nebulizer treatments. GI and DVT prophylaxis. We will continue to monitor labs/results and adjust treatment as necessary. Further recommendations pending. I performed an examination of the patient and discussed their management with the nurse practitioner. I have reviewed the nurse practitioner's note and agree with the documented findings and plan of care.
[2017-03-09 14:09] LABS: Glucose,Whole Blood 187 mg/dL (75-99)
[2017-03-09 15:08] LABS: Glucose,Whole Blood 185 mg/dL (75-99)
[2017-03-09] MEDS ORDERED: DEXTROSE 5% IN WATER 1,000 ML IV SCH ×2 (16:15→19:13)
[2017-03-09] MEDS: POTASSIUM CHLORIDE 20 MEQ, LIDOCAINE 2% INJ 20 MG in SODIUM CHLORIDE 0.9% 100 ML IVPB SCH ×3 (16:17→20:11)
[2017-03-09 16:31] LABS: Glucose,Whole Blood 151 mg/dL (75-99)
[2017-03-09 17:16] LABS: Glucose,Whole Blood 157 mg/dL (75-99)
[2017-03-09] MEDS: RIVAROXABAN 10 MG TAB PO SCH (18:11)
[2017-03-09 18:14] LABS: Glucose,Whole Blood 136 mg/dL (75-99)
[2017-03-09 19:03] LABS: Glucose,Whole Blood 181 mg/dL (75-99)
[2017-03-09] MEDS ORDERED: FUROSEMIDE 10 MG/ML 4 ML VIAL IV STA (19:13)
[2017-03-09 20:06] LABS: Glucose,Whole Blood 171 mg/dL (75-99)
[2017-03-09 20:12] VITALS: TEMP 97.5
--- NOTE | 2017-03-09 20:50 | CT ---
EXAMINATION TYPE: CT brain wo con DATE OF EXAM: 03/09/2017 COMPARISON: 03/07/2017 HISTORY: Cerebral edema. CT DLP: 1114.00 mGycm Automated exposure control for dose reduction was used. FINDINGS: There is loss of normal feliciano-white matter density separation. There is high attenuation that appears to be in the sulci consistent with diffuse subarachnoid hemorrhage. There is high attenuation around the brainstem consistent with subarachnoid hemorrhage. There is no midline shift. There is complete e ffacement of the sulci. Calvarium is intact. IMPRESSION: THERE IS EVIDENCE OF DIFFUSE CEREBRAL EDEMA WITH EFFACEMENT OF THE SULCI AND CONSISTENT WITH ANOXEMIA . THERE IS EVIDENCE FOR NEW DIFFUSE SUBARACHNOID HEMORRHAGE COMPARED TO LAST EXAM.
--- NOTE | 2017-03-09 21:06 | PN ---
DATE OF SERVICE: 03/09/2017 This 51-year-old gentleman who has a past medical history of COPD, cor pulmonale , pulmonary embolism and multiple other medical issues was admitted with out-of- hospital cardiac arrest. The patient had profound metabolic acidosis. The patient is mechanically ventilated and sedated. The patient also had features of anoxic brain injury. He also has a history of pulmonary embolism. Multiple consultants are following the patient closely at the time. Patient is being closely monitored. Neurology is also following the patient. The patient had possible diabetes insipidus. Past medical history reviewed. Review of systems could not be taken. CURRENT MEDICATIONS: 1. DuoNeb q.i.d. and p.r.n. 2. Pulmicort 0.5 b.i.d. 3. Peridex 15 mL b.i.d. 4. Decadron 6 mg IV q.4 p.r.n. 5. Esomeprazole 20 mg daily. 6. Ativan 2 mg q.4 p.r.n. 7. Morphine sulfate 2 mg q.2. 8. Narcan 0.2 q.2 p.r.n. 9. Nitrostat. 10. Zosyn 3.375 IV q.8. 11. Diprivan 12. Xarelto 20 mg. PHYSICAL EXAM: Patient is mechanically ventilated and sedated. Pulse is 76, blood pressure 113/58, respiration 18, temperature normal, pulse ox 92% on mechanical ventilation 40% FIO2. HEENT: Conjunctivae normal. Pupils are mid dilated. CARDIOVASCULAR: S1, S2 muffled. No S3. No S4. RESPIRATORY: Breath sounds diminished at the bases. A few scattered rhonchi and crackles. ABDOMEN: Soft, obese, non-tender. LEGS: No edema. No swelling. NERVOUS SYSTEM: Patient is mechanically ventilated and sedated. Labs at this time show sodium 168, potassium 3. WBC 11.8. Platelets are 128. Osmolality 347. ASSESSMENT: 1. Status post cardiopulmonary arrest and acute respiratory failure, on mechanical ventilation, possible anoxic brain injury. 2. Pulmonary hypertension. 3. Severe chronic obstructive pulmonary disease, cor pulmonale. 4. History of pulmonary embolism. 5. Obesity. 6. Hypokalemia. 7. Severe metabolic and respiratory acidosis, acute. 8. Acute kidney injury. 9. Acute hypoxic hypercapnic respiratory failure. 10. Increased white count. 11. Increased AST, ALT. 12. SIADH, possibly secondary to anoxic brain injury. 13. Increased creatinine. RECOMMENDATIONS AND DISCUSSION: In this 51-year-old gentleman who presented with multiple complex medical problems, we will monitor the patient closely, continue the current medications, continue symptomatic treatment. Otherwise, at this time I would recommend continuing with DDAVP. Monitor electrolytes closely. Empiric antibiotics have been given. Prognosis is extremely guarded beacuse of the above mentioned issues and possible anoxic injury. Discussed with the patient's at length. Further recommendations to follow. Dr Izaguirre , the neurologist is following the patient closely as well as Dr Pérez and MICHEL Lester. [facility]
[2017-03-09 21:07] VITALS: RESP 18
[2017-03-09 21:07] LABS: Glucose,Whole Blood 159 mg/dL (75-99)
[2017-03-09 22:24] LABS: Glucose,Whole Blood 151 mg/dL (75-99)
[2017-03-09 22:58] LABS: Glucose,Whole Blood 142 mg/dL (75-99)
[2017-03-09 23:06] VITALS: BP 117/71; PULSE 70
[2017-03-09 23:50] LABS: Glucose,Whole Blood 136 mg/dL (75-99)
--- NOTE | 2017-03-10 01:26 | P.PN ---
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 Patient was transferred immediately after undergoing CPR to the emergency room at [facility] for further assessment. Patient was intubated and transferred to the intensive care unit. His estimated downtime was felt to be at least 15-20 minutes in duration. He was admitted to the intensive care unit for close monitoring. The patient underwent an initial computed tomography scan of the brain on 03/06/2017. This revealed evidence for anoxic encephalopathy due to cardiac arrest. His neurological examination on admission to the ICU revealed no evidence of brainstem reflexes. He was to be maintained on the ventilator due to his poor pulmonary status. His neurological examination suggested severe anoxic encephalopathy on admission to the ICU. We did discuss these findings in detail with the patient's at bedside. We've recommended a repeat computed tomography scan to be done for the patient as well as close monitoring in the ICU. He was started on IV Decadron for further treatment of vasogenic edema. He underwent a repeat computed tomography scan of the brain on 03/07/2017 which continued to reveal evidence of acute anoxic encephalopathy. There was no evidence of any hemorrhage on either CAT scan study. The patient had undergone an initial EEG which revealed evidence of severe anoxic encephalopathy with very low voltage. We had the was present in the ICU this evening on 03/09/2017 and the results of the EEG and his neurological exam was once again reviewed with the patient. This was late this evening when the results were reviewed with the patient's in the ICU. She requested that only her and her mother be informed of all test results. This was witnessed by 2 nurses were in the ICU room at the time. We agreed to this and went over the results of the repeat EEG in detail with the patient's . The EEG revealed more flattening of the EEG background at a sensitivity setting of 7 V. The EEG was consistent with electrocerebral silence. With a sensitivity setting of 2 V minimal low voltage activity was seen. Given his neurological examination which revealed no brainstem reflexes and a Yg Coma Scale of 3 this patient was felt to have impending brain . We discussed this in detail with the with the and consoled her on these very hard findings on her 's overall neurological status. She did request that we reevaluate his brain as well as his heart. We told the that she would need to request cardiac evaluation from cardiology. She she did wish to have a repeat computed tomography scan of the brain done today and we did arrange for a computed tomography scan to be done this evening. This CAT scan was completed late this evening at 2050 hrs. and was reported out by the radiologist. The CAT scan revealed evidence of diffuse cerebral edema with effacement. There was evidence of new diffuse subarachnoid hemorrhage that was not noted none to previous CAT scans. We reviewed the results of the CAT scan immediately with the patient's . We have gone over all of the clinical and exam findings thus far including the fact that he is showing signs of impending brain . We felt the only option is for possible neurosurgical evaluation but given his very poor prognosis and current neurological status it was felt to be futile. The patient 's was given all of the findings of all of his testing in detail today at length. She did finally decide to have the patient transferred by air ambulance to [facility] for neurosurgical evaluation. In respect of her wishes we have contacted the transfer team at [facility]. We did speak with the accepting physician at [facility] Dr. Cavazos who has accepted this patient and transferred to the neurosurgery ICU. We conveyed all of these recommendations to the ICU nurse Tanja who did assist in making arrangements for final transfer this patient by air ambulance to [facility] as soon as possible. His overall prognosis at this time remains very guarded. We will contact [facility] neurosurgery staff tomorrow for follow-up regarding his condition tomorrow. As noted his overall prognosis at this time remains very guarded. Objective - Vital Signs Vital signs: Vital Signs Temp 97.5 F L 03/09/17 20:00 Pulse 70 03/09/17 23:00 Resp 18 03/09/17 23:00 BP 117/71 03/09/17 23:00 Pulse Ox 94 L 03/09/17 23:00 Intake & Output 03/09/17 03/09/17 03/10/17 06:59 18:59 06:59 Intake Total 4090.092 8081.524 938.462 Output Total 0 1046 972 Balance -84.349 1416.524 -33.538 Weight 152.7 kg 152.7 kg Intake: IV 1537.5 1940.0 650.0 0.9 at KVO 40 50 Dextrose 5% in Water 1, 250 75 000 ml @ 125 mls/hr IV . Q8H NILSA Rx#:[id number] Dextrose 5% in Water 1, 300 000 ml @ 75 mls/hr IV . [id number] NILSA Rx#:[id number] Dextrose 5%-0.45% NaCl 1, 700 400 000 ml @ 100 mls/hr IV . Q10H NILSA Rx#:[id number] Dextrose 5%-0.45% NaCl 1, 750 000 ml @ 125 mls/hr IV . Q8H NILSA Rx#:[id number] Esomeprazole 20 mg In 50 Sodium Chloride 0.9% 50 ml @ 100 mls/hr IVPB DAILY NILSA Rx#:[id number] Piperacillin-Tazobactam 3 87.5 75.0 25.0 .375 gm In Dextrose/Water 1 50ml.bag @ 12.5 mls/hr IVPB Q8HR NILSA Rx#: [id number] Potassium Chloride 10 meq 200 In Water For Injection 1 100ml.bag @ 100 mls/hr IVPB Q1H NILSA Rx#: [id number] Potassium Phosphate 10 375 375 mmol In Sodium Chloride 0 .9% 250 ml @ 125 mls/hr IV Q2H NILSA Rx#:[id number] Sodium Chloride 0.9% 1, 375 000 ml @ 75 mls/hr IV . [id number] NILSA Rx#:[id number] Intake, IV Titration 128.151 192.524 158.462 Amount Insulin Regular 100 unit 128.151 192.524 58.462 In Sodium Chloride 0.9% 100 ml @ Per Protocol IV .Q0M NILSA Rx#:[id number] Potassium Chloride 20 meq 100 Lidocaine 2% Inj 20 mg In Sodium Chloride 0.9% 100 ml @ 55.5 mls/hr IVPB Q2HR NILSA Rx#:[id number] Tube Feeding 240 240 100 Other 90 90 30 Output: Urine 2080 1046 972 Other: Voiding Method Indwelling Catheter Indwelling Catheter Indwelling Catheter - Labs CBC & Chem 7: 03/09/17 04:55 03/09/17 21:00 Labs: Abnormal Lab Results - Last 24 Hours (Table) 03/09/17 03/09/17 03/09/17 Range/Units 01:56 03:14 03:57 WBC (3.8-10.6) k/uL Plt Count (150-450) k/uL Neutrophils # (1.3-7.7) k/uL Lymphocytes # (1.0-4.8) k/uL Sodium (137-145) mmol/L Potassium (3.5-5.1) mmol/L Chloride (98-107) mmol/L Creatinine (0.66-1.25) mg/dL Glucose (74-99) mg/dL POC Glucose (mg/dL) 236 H 216 H 218 H (75-99) mg/dL Osmolality (280-301) mosm/kg Magnesium (1.6-2.3) mg/dL Ur Random Sodium (30-90) mmol/L 03/09/17 03/09/17 03/09/17 Range/Units 04:55 04:55 05:00 WBC 11.8 H (3.8-10.6) k/uL Plt Count 128 L (150-450) k/uL Neutrophils # 10.2 H (1.3-7.7) k/uL Lymphocytes # 0.8 L (1.0-4.8) k/uL Sodium 166 H* (137-145) mmol/L Potassium (3.5-5.1) mmol/L Chloride 130 H* (98-107) mmol/L Creatinine 1.50 H (0.66-1.25) mg/dL Glucose 230 H (74-99) mg/dL POC Glucose (mg/dL) 212 H (75-99) mg/dL Osmolality (280-301) mosm/kg Magnesium 3.1 H (1.6-2.3) mg/dL Ur Random Sodium (30-90) mmol/L 03/09/17 03/09/17 03/09/17 Range/Units 06:12 07:05 07:59 WBC (3.8-10.6) k/uL Plt Count (150-450) k/uL Neutrophils # (1.3-7.7) k/uL Lymphocytes # (1.0-4.8) k/uL Sodium (137-145) mmol/L Potassium (3.5-5.1) mmol/L Chloride (98-107) mmol/L Creatinine (0.66-1.25) mg/dL Glucose (74-99) mg/dL POC Glucose (mg/dL) 204 H 201 H 165 H (75-99) mg/dL Osmolality (280-301) mosm/kg Magnesium (1.6-2.3) mg/dL Ur Random Sodium (30-90) mmol/L 03/09/17 03/09/17 03/09/17 Range/Units 09:21 09:48 09:52 WBC (3.8-10.6) k/uL Plt Count (150-450) k/uL Neutrophils # (1.3-7.7) k/uL Lymphocytes # (1.0-4.8) k/uL Sodium (137-145) mmol/L Potassium 3.3 L (3.5-5.1) mmol/L Chloride (98-107) mmol/L Creatinine (0.66-1.25) mg/dL Glucose (74-99) mg/dL POC Glucose (mg/dL) 141 H (75-99) mg/dL Osmolality 347 H* (280-301) mosm/kg Magnesium (1.6-2.3) mg/dL Ur Random Sodium <5 L (30-90) mmol/L 03/09/17 03/09/17 03/09/17 Range/Units 10:21 11:09 12:20 WBC (3.8-10.6) k/uL Plt Count (150-450) k/uL Neutrophils # (1.3-7.7) k/uL Lymphocytes # (1.0-4.8) k/uL Sodium (137-145) mmol/L Potassium (3.5-5.1) mmol/L Chloride (98-107) mmol/L Creatinine (0.66-1.25) mg/dL Glucose (74-99) mg/dL POC Glucose (mg/dL) 130 H 169 H 189 H (75-99) mg/dL Osmolality (280-301) mosm/kg Magnesium (1.6-2.3) mg/dL Ur Random Sodium (30-90) mmol/L 03/09/17 03/09/17 03/09/17 Range/Units 13:12 14:07 15:07 WBC (3.8-10.6) k/uL Plt Count (150-450) k/uL Neutrophils # (1.3-7.7) k/uL Lymphocytes # (1.0-4.8) k/uL Sodium (137-145) mmol/L Potassium (3.5-5.1) mmol/L Chloride (98-107) mmol/L Creatinine (0.66-1.25) mg/dL Glucose (74-99) mg/dL POC Glucose (mg/dL) 176 H 187 H 185 H (75-99) mg/dL Osmolality (280-301) mosm/kg Magnesium (1.6-2.3) mg/dL Ur Random Sodium (30-90) mmol/L 03/09/17 03/09/17 03/09/17 Range/Units 15:10 16:30 17:14 WBC (3.8-10.6) k/uL Plt Count (150-450) k/uL Neutrophils # (1.3-7.7) k/uL Lymphocytes # (1.0-4.8) k/uL Sodium 168 H* (137-145) mmol/L Potassium 3.0 L* (3.5-5.1) mmol/L Chloride (98-107) mmol/L Creatinine (0.66-1.25) mg/dL Glucose (74-99) mg/dL POC Glucose (mg/dL) 151 H 157 H (75-99) mg/dL Osmolality (280-301) mosm/kg Magnesium (1.6-2.3) mg/dL Ur Random Sodium (30-90) mmol/L 03/09/17 03/09/17 03/09/17 Range/Units 18:13 19:02 20:05 WBC (3.8-10.6) k/uL Plt Count (150-450) k/uL Neutrophils # (1.3-7.7) k/uL Lymphocytes # (1.0-4.8) k/uL Sodium (137-145) mmol/L Potassium (3.5-5.1) mmol/L Chloride (98-107) mmol/L Creatinine (0.66-1.25) mg/dL Glucose (74-99) mg/dL POC Glucose (mg/dL) 136 H 181 H 171 H (75-99) mg/dL Osmolality (280-301) mosm/kg Magnesium (1.6-2.3) mg/dL Ur Random Sodium (30-90) mmol/L 03/09/17 03/09/17 03/09/17 Range/Units 21:00 21:06 22:22 WBC (3.8-10.6) k/uL Plt Count (150-450) k/uL Neutrophils # (1.3-7.7) k/uL Lymphocytes # (1.0-4.8) k/uL Sodium 165 H* (137-145) mmol/L Potassium (3.5-5.1) mmol/L Chloride (98-107) mmol/L Creatinine (0.66-1.25) mg/dL Glucose (74-99) mg/dL POC Glucose (mg/dL) 159 H 151 H (75-99) mg/dL Osmolality (280-301) mosm/kg Magnesium (1.6-2.3) mg/dL Ur Random Sodium (30-90) mmol/L 03/09/17 03/09/17 Range/Units 22:56 23:44 WBC (3.8-10.6) k/uL Plt Count (150-450) k/uL Neutrophils # (1.3-7.7) k/uL Lymphocytes # (1.0-4.8) k/uL Sodium (137-145) mmol/L Potassium (3.5-5.1) mmol/L Chloride (98-107) mmol/L Creatinine (0.66-1.25) mg/dL Glucose (74-99) mg/dL POC Glucose (mg/dL) 142 H 136 H (75-99) mg/dL Osmolality (280-301) mosm/kg Magnesium (1.6-2.3) mg/dL Ur Random Sodium (30-90) mmol/L Assessment and Plan (1) Anoxic-ischemic encephalopathy Status: Acute Code(s): G93.1 - ANOXIC BRAIN DAMAGE, NOT ELSEWHERE CLASSIFIED; I67.82 - CEREBRAL ISCHEMIA (2) Cardiopulmonary arrest Status: Acute Code(s): I46.9 - CARDIAC ARREST, CAUSE UNSPECIFIED (3) Cor pulmonale Status: Acute Code(s): I27.81 - COR PULMONALE (CHRONIC) (4) PEA (Pulseless electrical activity) Status: Acute Code(s): I46.9 - CARDIAC ARREST, CAUSE UNSPECIFIED Plan: Please see addendum to today's progress note as noted above. Patient is to be transferred by air ambulance today to [facility] neurosurgery ICU for further evaluation and treatment. His overall prognosis at this time remains very guarded.
--- NOTE | 2017-03-10 06:30 | EEG ---
DATE OF SERVICE: 03/09/2017 ELECTROENCEPHALOGRAPHIC EXAMINATION REPORT INDICATION FOR EXAMINATION: This patient is a 51-year-old male who suffered a witnessed cardiac arrest. Patient remains unresponsive on the ventilator and is comatose. This is a follow-up EEG for comparison and halfway prognosis evaluation. Age: 51. EEG FINDINGS: A routine 21 channel awake, digital EEG recording was accomplished utilizing the 10-20 international system with bipolar and referential montages. The background activity at a sensitivity setting of 7 microvolts reveals very little brain activity. This is seen as near silenced throughout the entire reading at 7 microvolts. At a sensitivity setting of 2 microvolts low voltage beta activity is seen in a generalized fashion. Hyperventilation was not performed. Photic stimulation at flash frequencies of 2 -30 Hz produced no occipital driving response. No epileptiform discharges were seen. IMPRESSION: This EEG gives evidence of a severe widespread diffuse disturbance in cerebral function. The EEG at a sensitivity setting of 2 microvolts reveals only minimal brain activity. At a sensitivity of 7 microvolts the EEG reveals electrocerebral silence. This EEG pattern is highly suggesting impending brain . Clinical correlation is strongly recommended. [facility]
== END 2017-03-09 23:50 | disposition short-term general hospital (02) | DRG 296 ==
LOC: EC 10:47 → 6ICU 12:14
PROVIDERS: ADMIT Internal Medicine; ATTEND Internal Medicine
PROC: 5A1945Z Respiratory Ventilation, 24-96 Consecutive Hours (ICD-10-PCS; principal; 2017-03-06)
PROC: 0BH17EZ Insertion of Endotracheal Airway into Trachea, Via Natural or Artificial Opening (ICD-10-PCS; 2017-03-06)
DX: I46.9 Cardiac arrest, cause unspecified (principal); J69.0 Pneumonitis due to inhalation of food and vomit; G93.6 Cerebral edema; G93.1 Anoxic brain damage, not elsewhere classified; J96.01 Acute respiratory failure with hypoxia; J96.02 Acute respiratory failure with hypercapnia; N17.9 Acute kidney failure, unspecified; E23.2 Diabetes insipidus; G91.9 Hydrocephalus, unspecified; E22.2 Syndrome of inappropriate secretion of antidiuretic hormone; J44.1 Chronic obstructive pulmonary disease with (acute) exacerbation; I42.9 Cardiomyopathy, unspecified; I67.82 Cerebral ischemia; J45.901 Unspecified asthma with (acute) exacerbation; Z68.42 Body mass index [BMI] 45.0-49.9, adult; J98.11 Atelectasis; I45.2 Bifascicular block; I27.2 Other secondary pulmonary hypertension; I27.81 Cor pulmonale (chronic); E66.01 Morbid (severe) obesity due to excess calories; E87.5 Hyperkalemia; F17.210 Nicotine dependence, cigarettes, uncomplicated; G47.33 Obstructive sleep apnea (adult) (pediatric); E87.6 Hypokalemia; Z79.01 Long term (current) use of anticoagulants; Z79.51 Long term (current) use of inhaled steroids; Z79.899 Other long term (current) drug therapy; Z71.3 Dietary counseling and surveillance; Z87.01 Personal history of pneumonia (recurrent); Z86.711 Personal history of pulmonary embolism; Z91.018 Allergy to other foods
CPT/HCPCS: 36415; 36600; 70450; 71010; 71275; 80048; 80053; 81001; 81003; 82550; 82553; 82805; 83036; 83605; 83735; 83880; 83930; 83935; 84100; 84132; 84295; 84300; 84484; 85025; 85027; 85610; 85730; 87070; 87086; 87205; 93005; 93306; 94002; 94003; 94640; 94770; 95816